=== PATIENT | female | born 1930 | race Caucasian/White ===

== ENCOUNTER 2017-04-18 14:17 | Inpatient (IN) | payer MEDICARE, BC ==
[~2017-04-18] VITALS: Ht 157.5 cm; Wt 63.0 kg
[2017-04-18 14:51] LABS: BASOPHILS 0.5 % (0-2); EOSINOPHILS 1.8 % (0-7); HEMATOCRIT 41.7 % (36.0-48.0); IMMATURE GRANULOCYTES 0.4 % (0-5); LYMPHOCYTES 10.5 % (15-50); MCHC 33.6 g/dL (31.0-37.0); MCV 92.5 fL (80.0-100.0); MEAN PLATELET VOLUME 9.2 fL (7.4-10.4); MONOCYTES 16.3 % (2-11); NEUTROPHILS 70.5 % (40-80); PLATELET COUNT 216 10x3/uL (130-400); RBC 4.51 10x6/uL (4.00-5.40); RDW 12.9 % (11.5-14.5); WBC 8.1 10x3/uL (4.8-10.8)
[2017-04-18 15:05] LABS: ALBUMIN 3.1 g/dL (3.4-5.0); ANION GAP 13.6 mmol/L (8-16); BILIRUBIN - TOTAL 0.42 mg/dL (0.2-1.3); CALCIUM 8.2 mg/dL (8.5-10.1); CARBON DIOXIDE 25.2 mmol/L (21.0-32.0); CREATININE - SERUM 1.1 mg/dL (0.6-1.3); POTASSIUM - SERUM 4.8 mmol/L (3.5-5.1); PROTEIN - SERUM 7.2 g/dL (6.4-8.2)
[2017-04-18 16:27] LABS: APPEARANCE CLEAR (CLEAR); BILIRUBIN NEGATIVE (NEGATIVE); COLOR YELLOW (YELLOW); GLUCOSE NEGATIVE (NEGATIVE); KETONE NEGATIVE (NEGATIVE); LEUKOCYTE ESTERASE 1+ (NEGATIVE); NITRITE POSITIVE (NEGATIVE); PROTEIN NEGATIVE (NEGATIVE); SPECIFIC GRAVITY 1.005 (1.005-1.020); UROBILINOGEN NORMAL (NORMAL)
[2017-04-18 16:29] LABS: BACTERIA MODERATE /hpf (NONE SEEN)
[2017-04-18 20:00] VITALS: BP 129/52
[2017-04-18 20:09] VITALS: BP 129/52; BMI 25.5
[2017-04-19] VITALS: BP 126/47
--- NOTE | 2017-04-19 02:00 | NUR ---
PT RESTING WITH EYES CLOSED AND NO VISIBLE SIGNS OF DISTRESS. BED IN LOWEST POSITION AND CALL LIGHT WITHIN REACH.
[2017-04-19 04:00] VITALS: BP 122/49
--- NOTE | 2017-04-19 05:50 | NUR ---
RESITED THE PATIENT'S IV WITH A 22G IN THE RIGHT FA ON THE FIRST ATTEMPT.
--- NOTE | 2017-04-19 07:00 | NUR ---
PT REC'D FROM [facility]. RESTING IN BED WITH DAUGHTER IN LAW AT BEDSIDE. AAOX4. NO COMPLAINTS OF PAIN. REGULAR HEART RATE AND RHYTHM. LUNG SOUNDS CLEAR AND EQUAL BILAT. TEACHER EARLY CHILDHOOD DEVELOPMENT ON. ABD ROUND, BOWEL SOUNDS ACTIVE X4 QUADS, AND NO PAIN ON PALPATION. +2 PEDAL PULSES BILAT. R FOOT DROPPED NOTED. PT STATES, "I'VE HAD THAT EVER SINCE I HAD MY STROKE." PIV TO R AC FREE OF REDNESS AND SWELLING. BED LOW, CALL LIGHT IN REACH, DENIES NEEDS. CPOC.
[2017-04-19 07:55] LABS: BASOPHILS 0.6 % (0-2); EOSINOPHILS 2.4 % (0-7); HEMATOCRIT 41.9 % (36.0-48.0); HEMOGLOBIN 14.1 g/dL (12-16); IMMATURE GRANULOCYTES 0.4 % (0-5); LYMPHOCYTES 17.8 % (15-50); MCH 31.1 pg (26.0-34.0); MCHC 33.7 g/dL (31.0-37.0); MCV 92.3 fL (80.0-100.0); MEAN PLATELET VOLUME 9.1 fL (7.4-10.4); MONOCYTES 14.2 % (2-11); NEUTROPHILS 64.6 % (40-80); PLATELET COUNT 199 10x3/uL (130-400); RBC 4.54 10x6/uL (4.00-5.40); RDW 12.9 % (11.5-14.5); WBC 6.7 10x3/uL (4.8-10.8)
[2017-04-19 08:22] LABS: ANION GAP 10.2 mmol/L (8-16); BILIRUBIN - TOTAL 0.42 mg/dL (0.2-1.3); CALCIUM 8.4 mg/dL (8.5-10.1); CARBON DIOXIDE 27.6 mmol/L (21.0-32.0); CREATININE - SERUM 0.9 mg/dL (0.6-1.3); POTASSIUM - SERUM 4.8 mmol/L (3.5-5.1); PROTEIN - SERUM 7.1 g/dL (6.4-8.2)
[2017-04-19 08:26] VITALS: BP 114/53
[2017-04-19] MEDS ORDERED: BACTRIM 400-801 TAB PO (09:02)
[2017-04-19] MEDS ORDERED: NORVASC10 MG PO (09:03)
[2017-04-19] MEDS ORDERED: BAYER CHEWABLE81 MG PO (09:05)
[2017-04-19] MEDS ORDERED: CETIRIZINE HCL5 M1 PO (09:05)
[2017-04-19] MEDS ORDERED: CELEXA20 MG PO (09:06)
[2017-04-19] MEDS ORDERED: COZAAR50 MG PO (09:06)
[2017-04-19] MEDS ORDERED: FUROSEMIDE20 MG PO (09:06)
[2017-04-19] MEDS ORDERED: TOPROL XL50 MG PO (09:07)
[2017-04-19] MEDS ORDERED: OMEPRAZOLE40 MG PO (09:07)
[2017-04-19] MEDS ORDERED: K-TAB10 MEQ PO (09:07)
[2017-04-19] MEDS ORDERED: VESICARE10 MG PO (09:08)
[2017-04-19] MEDS ORDERED: TESSALON PERLE100 MG PO ×2 (09:08)
[2017-04-19] MEDS ORDERED: MUCINEX600 MG PO (09:09)
--- NOTE | 2017-04-19 09:57 | NUR ---
* Is the patient Alert and Oriented? Yes 0 * How many steps to enter\exit or inside your home? 0 0 * PCP Hitesh 0 * Pharmacy [facility] 0 * Preadmission Environment Assisted Living 0 * Facility Name [facility] 0 * ADLs Partial Dependent 0 * Partial ADLs (Assistance needed) Ambulation 0 * Other Equipment TRANSPORT CHAIR 0 * List name and contact numbers for known caregivers / representatives who currently or will assist patient after discharge: HANY & NAYELY (SON &DAUGHTER IN LAW) [phone] * Community resources currently utilized [facility]isted [facility] 0 * Please name any agencies selected above. [facility]- 1 TIME A WEEK FOR PT 0 * Additional services required to return to the preadmission environment? Yes 0 * Can the patient safely return to the preadmission environment? Yes 0 * Has this patient been hospitalized within the prior 30 days at any hospital? No 0 Grand Total: 0 Patient Name: BUBBA TOBAR Admission Status: ER Accout number: [id number] Admission Date: 04-18-2017 : 1928 Admission Diagnosis: Attending: JA Current LOS: 1 Anticipated DC Date: Planned Disposition: Assisted Living Primary Insurance: MEDICARE A & B Discharge Planning Comments: CM met with patient and daughter in law (Nayely) to assess discharge planning needs. Patient currently lives in [facility] with Assisted living since 2005. Her plan is to return there. Nayely stated that [facility] comes one time a week and walks her down the [place]. Patient has a walker and a transport chair. CM will continue to follow and assist with discharge planning needs. PCP:Hitesh Pineda Hany (son) [phone] Nayely (daughter in law) [phone] Supervisor Mending: Patrica Gallardo
--- NOTE | 2017-04-19 11:15 | NUR ---
PT SITTING UP IN BED WITH VISITORS AT BEDSIDE. NO VISABLE SIGNS OF PAIN OR DISCOMFORT AT THIS TIME. BED IN LOW POSITION AND CALL LIGHT WITHIN REACH. WILL CONTINUE TO MONITOR.
--- NOTE | 2017-04-19 11:23 | NUR ---
MORNING MEDS PASSED AT THIS TIME. TOLERATED WELL. FRESH WATER PROVIDED. BED LOW, CALL LIGHT IN REACH, DENIES NEEDS. CPOC.
--- NOTE | 2017-04-19 12:45 | NUR ---
SITTING UP IN BED EATING LUNCH. PT STATES SHE WALKED WITH PHYSICAL THERAPY. BED LOW, CALL LIGHT IN REACH, DENIES NEEDS. CPOC.
[2017-04-19 12:57] VITALS: BP 103/45
[2017-04-19 13:17] VITALS: Ht 157.5 cm; Wt 63.0 kg
[2017-04-19 16:11] VITALS: BP 112/48
[2017-04-19 20:00] VITALS: BP 119/49
--- NOTE | 2017-04-19 23:49 | NUR ---
PT ALERT & ORIENTED. LYING IN BED WATCHING TV. ASSESSMENT COMPLETE PER FLOW-SHEET. GAVE SHERBET FOR SNACK. NO OTHER NEEDS. WILL REASSESS AND CONTINUE TO MONITOR.
[2017-04-20] VITALS: BP 105/40
[2017-04-20 04:00] VITALS: BP 117/51
[2017-04-20 05:17] LABS: BASOPHILS 0.4 % (0-2); EOSINOPHILS 4.3 % (0-7); HEMATOCRIT 43.1 % (36.0-48.0); HEMOGLOBIN 14.3 g/dL (12-16); IMMATURE GRANULOCYTES 0.1 % (0-5); LYMPHOCYTES 20.7 % (15-50); MCH 30.6 pg (26.0-34.0); MCHC 33.2 g/dL (31.0-37.0); MCV 92.1 fL (80.0-100.0); MEAN PLATELET VOLUME 9.3 fL (7.4-10.4); MONOCYTES 18.2 % (2-11); NEUTROPHILS 56.3 % (40-80); PLATELET COUNT 217 10x3/uL (130-400); RBC 4.68 10x6/uL (4.00-5.40); RDW 12.7 % (11.5-14.5)
[2017-04-20 05:32] LABS: ANION GAP 10.9 mmol/L (8-16); CALCIUM 8.1 mg/dL (8.5-10.1); CARBON DIOXIDE 27.1 mmol/L (21.0-32.0); CREATININE - SERUM 0.8 mg/dL (0.6-1.3)
--- NOTE | 2017-04-20 07:00 | NUR ---
PT AWAKE AND ALERT. RESTING ON HER BACK. ON ROOM AIR. R-AC SALINE LOCK. BRUISE NOTED ON LEFT FOREARM AND RIGHT FOREARM. ON TELEMETRY SYNUS RHYTHM 78BTS/MIN. S1S2 NOTED. LUNG SOUNDS CLEAR. BS ACTIVE X 4 QUADRANTS. SKIN WARM AND DRY. NO PAIN AT THIS TIME. NO OTHER SKIN ISSUES NOTED. BED LOW POSITION, CALL LIGHT IN REACH. WILL CONTINUE TO MONITOR.
[2017-04-20 08:54] VITALS: BP 131/58
--- NOTE | 2017-04-20 09:55 | NUR ---
PT RESTING QUIETLY. AM MEDS GIVEN WITH NO COMPLICATIONS. ICE WATER PROVIDED. TURNED TO LEFT SIDE. BED LOW. CALL LIGHT IN REACH.
--- NOTE | 2017-04-20 12:00 | NUR ---
NUTRITION MONITORING & EVAL CHART REVIEWED. ADDED ENSURE TO AHA DIET BUT INTAKE REMAINS POOR. WILL CONTINUE TO PROVIDE DIET, ENCOURAGE INTAKE. RD FOLLOWING
[2017-04-20 13:03] VITALS: BP 103/46
--- NOTE | 2017-04-20 13:42 | NUR ---
AMBULATING WITH PHYSICAL THERAPY.
--- NOTE | 2017-04-20 15:34 | NUR ---
PT SOUND ASLEEP. SCD'S CONNECTED. RESTING ON HER BACK AT THIS TIME. NO OTHER NEEDS WILL CONTINUE TO MONITOR.
--- NOTE | 2017-04-20 16:49 | NUR ---
PT HAD BM AND URINE INCONTINENT EPISODE. PERICARE PROVIDED. CLEAN PAD, GOWN, TOP SHEET AND BLANKET PROVIDED. REPOSITIONED IN BED ONTO RIGHT SIDE. WILL CONTINUE TO MONITOR.
[2017-04-20 20:00] VITALS: BP 106/54
--- NOTE | 2017-04-20 22:52 | NUR ---
REC'D LYING IN BED. ALERT AND ORIENTED X4. DENIED PAIN AT THIS TIME. DENIED FURTHER NEEDS AT THIS TIME. WILL ADMIN PM/AM MEDS PRESCRIBED. INSTRUCTED TO CALL IF NEEDED ANYTHING. VERBALIZED UNDERSTANDING. BED LOW, LOCKED, CALL LIGHT IN REACH. WILL CONT TO MONITOR.
[2017-04-21] VITALS: BP 114/50
--- NOTE | 2017-04-21 02:12 | NUR ---
PATIENT IS RESTING QUIETLY WITH EYES CLOSED. NO SIGNS OF DISTRESS NOTED. BED IN LOWEST POSITION, CALL LIGHT IN REACH. BED RAILS UP X'S 2.
[2017-04-21 04:00] VITALS: BP 115/53
--- NOTE | 2017-04-21 07:30 | NUR ---
PATIENT IS RESTING QUIETLY IN HER BED WITH EYES CLOSED. RESPIRATIONS ARE EVEN AND UNLABORED. CALL LIGHT IN PATIENT'S REACH. BED ALARM IN PLACE. WILL MONITOR PATIENT.
[2017-04-21 08:34] VITALS: BP 114/52
--- NOTE | 2017-04-21 12:45 | NUR ---
PATIENT SITTING UP IN A CHAIR. PATIENT'S BLOOD PRESSURE IS 88/41. DR. DHILLON COIN PURSE FRAMER AND DR. DHILLON NOTIFIED OF PATIENT'S LOW BLOOD PRESSURE. NEW ORDERS RECEIVED TO HOLD ALL BLOOD PRESSURE MEDICATIONS AND GIVE PATIENT A 500 ML NORMAL SALINE BOLUS.
[2017-04-21 13:03] VITALS: BP 82/41
[2017-04-21 16:31] VITALS: BP 103/43
--- NOTE | 2017-04-21 17:30 | NUR ---
PATIENT SITTING UP IN HER BED AND EATING DINNER. PATIENT'S SON AT THE BEDSIDE. PATIENT DENIES ANY NEEDS AT PRESENT TIME. CALL LIGHT IN PATIENT'S REACH. WILL MONITOR.
[2017-04-21 20:00] VITALS: BP 107/43
--- NOTE | 2017-04-22 00:17 | NUR ---
REC'D. AT [facility]. OF SHIFT IN BED SUPINE POSITION EYES CLOSED RESP. DEEP AND EVEN.WILL CONTINUE TO MONITOR FOR ANY CHGES. AND FOLLOW CURRENT PLAN OF CARE. BED ARMED
--- NOTE | 2017-04-22 03:55 | NUR ---
PT. BECAME COMBATIVE WHEN CRUDE OIL DRIVER ATTEMPTING TO TAKE VITAL SIGNS
--- NOTE | 2017-04-22 07:39 | NUR ---
PATIENT SITTING UP IN HER BED. SCHEDULED MORNING MEDICATIONS GIVEN TO PATIENT IN APPLESAUCE. PATIENT TOLERATED WELL. PATIENT DENIES ANY NEEDS AT PRESENT TIME. CALL LIGHT IN PATIENT'S REACH. WILL MONITOR PATIENT.
[2017-04-22 08:32] VITALS: BP 120/51
[2017-04-22 11:56] VITALS: BP 106/47
[2017-04-22 16:42] VITALS: BP 116/47
[2017-04-22 19:00] VITALS: BP 108/94
--- NOTE | 2017-04-22 19:15 | NUR ---
RECIEVED SHIFT REPORT. PT IS LYING IN BED. ALERT AND ORIENTED AND ABLE TO VERBALIZE NEEDS. IV IS PATENT AND FLUIDS ARE RUNNING PER ORDER. SCD'S ON. PT DENIES ANY PAIN AT THIS TIME. NO NEEDS ARE VERBALIZED AT THIS TIME. WILL CONTINUE TO MONITOR. SIDE RAILS ARE UP X 2. BED IS IN LOWEST POSITION. CALL LIGHT IS WITHIN REACH.
--- NOTE | 2017-04-22 21:28 | NUR ---
SHIFT ASSESSMENT COMPLETED. FLUIDS HUNG PER NOV. PT CLEANED UP FROM INCONTINENT EPISODE. NO NEEDS ARE VOICED. WILL MONITOR. SIDE RAILS X 2. BED LOW. CALL LIGHT IN REACH.
[2017-04-23] VITALS: BP 133/62
[2017-04-23 04:00] VITALS: BP 140/66
--- NOTE | 2017-04-23 07:00 | NUR ---
PT REC'D FROM [place]. RESTING IN BED WITH BREAKFAST TRAY AT BEDSIDE. AAOX4. NO COMPLAINTS OF PAIN. REGULAR HEART RATE AND RHYTHM. LUNG SOUNDS CLEAR AND EQUAL BILAT. BOWEL SOUNDS ACTIVE X4 QUADS. NO COMPLIANTS OF PAIN ON PALPATION. SCD'S ON. +2 PEDAL PULSES BILAT. SKIN TO BLE CDI. MEAL SET UP PROVIDED. PIV TO R FA FREE OF REDNESS AND SWELLING. BED LOW, CALL LIGHT IN REACH, DENEIS NEEDS. CPOC.
[2017-04-23 08:38] VITALS: BP 129/56
--- NOTE | 2017-04-23 08:45 | NUR ---
MORNING MEDS PASSED AT THIS TIME. TOLERATED WELL BY MIXING WITH APPLESAUCE. BED LOW, CALL LIGHT IN REACH, DENIES NEEDS. CPOC.
--- NOTE | 2017-04-23 09:22 | NUR ---
CM spoke with patient and daughter in law about patients rehab options. She would like to go to our Rehab then go back to [facility]. Rehab consult entered and I spoke with Chiquita. CM will continue to follow and assist as needed.
--- NOTE | 2017-04-23 10:55 | NUR ---
PATIENT IN LOW [place] POSITION RESTING WITH EYES CLOSED. RESPIRATIONS EVEN AND UNLABORED. SIDE RAILS UP X2. BED IN LOW POSITION. CALL LIGHT IN REACH. FAMILY PRESENT.
--- NOTE | 2017-04-23 11:26 | NUR ---
REHAB PRESCREENING Rehab referral received and chart reviewed. Ms. Lozada is a good candidate for acute inpatient rehab. We will begin her paper screen and submit for approvals. Once approved she will be ready for admission to rehab when her physician feels she is appropriate for discharge. Thank you for this referral! Naila Saldana PAPER [place] MACHINE OPERATOR Rehab Manager Sales Training
--- NOTE | 2017-04-23 11:35 | NUR ---
PT UP AMBULATING IN HALLS WITH PHYSICAL THERAPY.
[2017-04-23] MEDS ORDERED: NORVASC5 MG PO (12:49)
[2017-04-23] MEDS ORDERED: TOPROL XL50 MG PO (12:49)
[2017-04-23] MEDS ORDERED: COZAAR25 MG PO (12:49)
--- NOTE | 2017-04-23 12:51 | HP ---
PATIENT: BUBBA TOBAR MEDICAL RECORD: [id number] ACCOUNT: [id number] LOCATION:D.[id number] : [birth year] ADMISSION DATE: 04/18/17 HISTORY AND PHYSICAL EXAMINATION DATE OF ADMISSION: 04/18/2017 CHIEF COMPLAINT: Generalized weakness. HISTORY OF PRESENT ILLNESS: This 86-year-old white female, who is a resident of [facility]. 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 She has hypertension and depression. She was brought in for generalized weakness over the last 2 weeks. Denies chest pain or shortness of breath. No nausea or vomiting. She is now requiring maximal assist to nursing care at [facility] with just simple activities of daily living including bathing, grooming et cetera. She has been getting physical therapy a couple of times a week to a local home health and she is just seemingly getting worse. In the ER, her sodium was little low at 130. Urinalysis showed positive nitrite, leukocyte esterase and moderate bacteria. She is admitted. PAST MEDICAL AND SURGICAL HISTORY: Arthritis, hypertension, reflux, overactive bladder allergies, stroke with residual right foot drop. PAST SURGICAL HISTORY: None. ALLERGIES: PENICILLIN, IODINE, CODEINE AND DEMEROL. SOCIAL HISTORY: She is , lives at [facility], retired. FAMILY HISTORY: Noncontributory. REVIEW OF SYSTEMS: GENERAL: No major weight changes. HEENT: No particular sinus or allergy problems. RESPIRATORY: No breathing problems. No history of COPD or asthma. CARDIAC: She has high blood pressure, but no known coronary artery disease. GASTROINTESTINAL: Has some reflux at times, but otherwise unremarkable. GENITOURINARY: Occasional urinary tract infection. She does have overactive bladder. MUSCULOSKELETAL: She has arthritic aches and pains. NEUROLOGIC: She has had a stroke with residual right leg weakness and foot drop. PSYCHIATRIC: She is having depression. PHYSICAL EXAMINATION: VITAL SIGNS: Today, temperature 98.2, pulse 78, respirations 20, blood pressure 129/52, and O2 sat 95%. She is awake and alert. She just not feel well. She cannot really put her finger on it. SKIN: Without rash. HEENT: Grossly within normal limits. NECK: Supple. HEART: Regular rate and rhythm without murmur. LUNGS: Clear. ABDOMEN: Soft, flat, nontender. EXTREMITIES: No edema. She wears an AFO in her right lower leg for foot drop. HISTORY AND PHYSICAL [id number] BUBBA TOBAR LABORATORY DATA: CBC is normal. Basic metabolic panel was okay except sodium 130. Liver functions are normal. Urinalysis shows yellow clear urine with positive nitrite, 1+ leukocyte esterase, 5-10 white blood cells, and moderate bacteria. Urine culture is pending. Chest x-ray shows mild bibasilar atelectasis. ASSESSMENT: 1. Weakness 2. Urinary tract infection. 3. Hyponatremia. PLAN: Started Rocephin in the ER. Urine culture. Get physical therapy to mobilize. Other tests and procedures as warranted. TRANSINT:[id number] Voice Confirmation ID: [id number] DOCUMENT ID: [id number] GABRIELLA ALLISON MD at 1251 CC: [id number] DICTATION DATE: 04/19/17 1030 GLUER AND SLICER HAND: 04/19/17 1245 ADM IN [place] [id number] [place] [address]
[2017-04-23 13:30] VITALS: BP 98/69
--- NOTE | 2017-04-23 15:03 | NUR ---
PT SITTING UP IN BED WITH EYES CLOSED. RESP EVEN AND UNLABORED. NO SIGNS OF DISTRESS. BED LOW, CALL LIGHT IN REACH, DENIES NEEDS. CPOC.
--- NOTE | 2017-04-23 16:21 | NUR ---
PATIENT DISCHARGING TO INPATIENT REHAB. DAUGHTER AT BEDSIDE. IMM SERVED
== END 2017-04-23 20:11 | DRG 690 ==
LOC: D.ER 14:17 → D.MS 18:23
PROVIDERS: Emergency Medicine; ADMIT Family Medicine
DX: N39.0 Urinary tract infection, site not specified (principal); E87.1 Hypo-osmolality and hyponatremia; I10 Essential (primary) hypertension; R53.1 Weakness; I69.30 Unspecified sequelae of cerebral infarction; M21.379 Foot drop, unspecified foot; K21.9 Gastro-esophageal reflux disease without esophagitis

== ENCOUNTER 2017-04-23 20:23 | Inpatient (IN) | payer MEDICARE, BC ==
[~2017-04-23] VITALS: Ht 157.5 cm; Wt 63.0 kg
[~2017-04-23 20:23] MED LIST: BACTRIM 400-801 TAB PO; BAYER CHEWABLE81 MG PO; CELEXA20 MG PO; CETIRIZINE HCL5 M1 PO; COZAAR25 MG PO; COZAAR50 MG PO; FUROSEMIDE20 MG PO; K-TAB10 MEQ PO; MUCINEX600 MG PO; NORVASC10 MG PO; NORVASC5 MG PO; OMEPRAZOLE40 MG PO; TESSALON PERLE100 MG PO; TOPROL XL50 MG PO; VESICARE10 MG PO
[2017-04-23 21:04] VITALS: BP 131/56; BMI 25.5
[2017-04-24 06:07] LABS: BASOPHILS 0.6 % (0-2); EOSINOPHILS 3.6 % (0-7); HEMATOCRIT 39.8 % (36.0-48.0); HEMOGLOBIN 13.5 g/dL (12-16); IMMATURE GRANULOCYTES 0.5 % (0-5); LYMPHOCYTES 37.6 % (15-50); MCH 31.1 pg (26.0-34.0); MCHC 33.9 g/dL (31.0-37.0); MCV 91.7 fL (80.0-100.0); MEAN PLATELET VOLUME 9.1 fL (7.4-10.4); MONOCYTES 10.2 % (2-11); NEUTROPHILS 47.5 % (40-80); RBC 4.34 10x6/uL (4.00-5.40); RDW 12.6 % (11.5-14.5); WBC 6.6 10x3/uL (4.8-10.8)
[2017-04-24 06:12] LABS: PLATELET COUNT 276 10x3/uL (130-400)
[2017-04-24 06:32] LABS: CALC OSMOLALITY 272 mosm/kg (275-300); CALCIUM 8.7 mg/dL (8.5-10.1); CARBON DIOXIDE 28.2 mmol/L (21.0-32.0); CHLORIDE - SERUM 103 mmol/L (98-107); CREATININE - SERUM 0.7 mg/dL (0.6-1.3); GLUCOSE 101 mg/dL (74-106); POTASSIUM - SERUM 3.6 mmol/L (3.5-5.1); SODIUM 137 mmol/L (136-145); UREA NITROGEN 10 mg/dL (7-18); eGFR NON AFRICAN AMERICAN 83 mL/min (90-120)
[2017-04-24 10:18] VITALS: Ht 157.5 cm; Wt 63.0 kg
--- NOTE | 2017-04-24 17:16 | NUR ---
PATIENT ADMITED TO REHAB FROM ACUTE FLOOR. SHE RESIDES AT [facility]. DR. ALLISON IS HER PCP [facility] SHE USES [facility] AT HOME FOR HOME HEALTH. WILL CONTINUE TO FOLLOW WITH PATIENT
[2017-04-24 18:20] VITALS: BP 138/46
--- NOTE | 2017-04-24 19:10 | NUR ---
RECIEVED UP IN W/C. PLEASANT AND COOPERATIVE. DENIES ANY PAIN. CALL LIGHT IN REACH.
--- NOTE | 2017-04-24 22:47 | NUR ---
RESTING IN BED WITH EYES CLOSED.CHECKED AND CHANGED. INCONTINENT OF URINE. ABLE TO ASSIST WITH TURNING AND REPOSITIONING. CALL LIGHT AND OVERBED TABLE IN REACH.
[2017-04-25 00:15] VITALS: BP 120/55
--- NOTE | 2017-04-25 00:42 | NUR ---
RESTING IN BED WITH EYES CLOSED. NO S/S OF DISTRESS OBSERVED. LAYING IN BED ON RIGHT SIDE. BED IN LOW POSITION. ALARM IN PLACE AND FUNCTIONAL. CALL LIGHT AND OVERBED TABLE IN REACH.
--- NOTE | 2017-04-25 02:21 | NUR ---
RESTING IN BED WITH EYES CLOSED. NO S/S OF DISTRESS OBSERVED. INCONTINENT OF BLADDER. PERICARE PROVIDED. CALL LIGHT AND OVERBED TABLE IN REACH.
--- NOTE | 2017-04-25 04:10 | NUR ---
RESTING IN BED WITH EYES CLOSED. NO S/S OF DISTRESS OBSERVED. CALL LIGHT IN REACH.
--- NOTE | 2017-04-25 08:00 | NUR ---
SITTING UP IN BED.BREAKFAST TRAY GIVEN.CL IN REACH.
[2017-04-25 08:01] VITALS: BP 124/53
[2017-04-25 20:00] VITALS: BP 112/53
--- NOTE | 2017-04-25 21:05 | NUR ---
ASSUMED CARE AND REPORT FROM SUSIE ANTHONY LPN
--- NOTE | 2017-04-25 21:45 | NUR ---
PT AWAKE, WATCHING TV, INFORMED PT THAT I WILL BE BACK SHORTLY TO DO ASSESSMENT AND ADM MEDS, PT VERBALIZES UNDERSTANDING, DENIES NEEDS AT THIS TIME, BED IN LOW POSITION, SIDE RAILS X 2, CALL LIGHT IN REACH
--- NOTE | 2017-04-25 22:21 | NUR ---
ASSESSMENT PER FLOW SHEET, PT AND BED NOTED TO BE COMPLETELY WET, PT CLEANED UP WITH WET WARM WIPES, COMPLETE BEDDING CHANGED, CLEAN BRIEFS AND SCRUB SHIRT PLACED ON PT, PT REPOSITIONED IN BED PER THIS RN AND JANNETH ARIZMENDI LPN, ADM 2100 MEDS PER MD ORDERS, SEE EMAR, WITH FRESH H20, PT DENIES PAIN, BED IN LOW POSITION, SIDE RAILS X 2, CALL LIGHT IN REACH
--- NOTE | 2017-04-25 23:25 | NUR ---
PT RESTING WITH EYES CLOSED, RESP QUIET, NO DISTRESS NOTED, LEFT UNDISTURBED AT THIS TIME
--- NOTE | 2017-04-26 01:30 | NUR ---
PT RESTING WITH EYES CLOSED, RESP QUIET, NO DISTRESS NOTED, LEFT UNDISTURBED AT THIS TIME, BED IN LOW POSITION, SIDE RAILS X 2, CALL LIGHT IN REACH
--- NOTE | 2017-04-26 05:27 | NUR ---
PT RESTING WITH EYES CLOSED, AROUSES TO SOFT VERBAL STIMULATION, ADM 0600 MED PER MD ORDERS, SEE EMAR, PT CLEANED UP WITH WET WARM WIPES, PINK PAD, BLUE CHUX AND BRIEF CHANGED, PT DENIES NEEDS OR PAIN AT THIS TIME, BED IN LOW POSITION, SIDE RAILS X 2, CALL LIGHT IN REACH
--- NOTE | 2017-04-26 06:44 | NUR ---
SHIFT REPORT TO DAY SHIFT
--- NOTE | 2017-04-26 08:00 | NUR ---
SHIFT ASSMT COMPLETED.
[2017-04-26 08:31] VITALS: BP 121/55
--- NOTE | 2017-04-26 12:00 | NUR ---
EATING LUNCH.DENIES NEEDS.
--- NOTE | 2017-04-26 19:14 | NUR ---
PT. IN BED WITH HOB UP FOR COMFORT WATCHING TV. NO VOICED NEEDS AT THIS TIME AND HER CALL LIGHT IS WITHIN REACH.
--- NOTE | 2017-04-26 19:45 | NUR ---
PT IN BED WITH HOB UP FOR COMFORT. WATCHING TV. ALERT & ORIENTED. TELEMETRY. NO O2. NO IV. INCONTINENT. BED IN LOWEST POSITION AND CALL LIGHT WITHIN REACH.
[2017-04-26 21:10] VITALS: BP 109/48
--- NOTE | 2017-04-26 23:45 | NUR ---
PT IN BED WITH HOB UP FOR COMFORT. EYES CLOSED. CHEST RISING AND FALLING. BED IN LOWEST POSITION AND CALL LIGHT WITHIN REACH.
--- NOTE | 2017-04-27 03:34 | NUR ---
PT LYING IN BED. EYES CLOSED. RESP. EVEN. BED IN LOWEST POSITION AND CALL LIGHT WITHIN REACH.
[2017-04-27 05:39] LABS: BASOPHILS 0.8 % (0-2); EOSINOPHILS 2.7 % (0-7); HEMATOCRIT 39.7 % (36.0-48.0); HEMOGLOBIN 13.3 g/dL (12-16); IMMATURE GRANULOCYTES 0.5 % (0-5); LYMPHOCYTES 33.9 % (15-50); MCH 30.9 pg (26.0-34.0); MCHC 33.5 g/dL (31.0-37.0); MCV 92.3 fL (80.0-100.0); MEAN PLATELET VOLUME 9.2 fL (7.4-10.4); MONOCYTES 14.4 % (2-11); NEUTROPHILS 47.7 % (40-80); PLATELET COUNT 290 10x3/uL (130-400); RDW 12.5 % (11.5-14.5); WBC 7.4 10x3/uL (4.8-10.8)
[2017-04-27 05:49] LABS: CALC OSMOLALITY 274 mosm/kg (275-300); CALCIUM 8.2 mg/dL (8.5-10.1); CARBON DIOXIDE 30.5 mmol/L (21.0-32.0); CHLORIDE - SERUM 102 mmol/L (98-107); CREATININE - SERUM 0.7 mg/dL (0.6-1.3); GLUCOSE 97 mg/dL (74-106); POTASSIUM - SERUM 3.8 mmol/L (3.5-5.1); SODIUM 136 mmol/L (136-145); UREA NITROGEN 20 mg/dL (7-18); eGFR NON AFRICAN AMERICAN 83 mL/min (90-120)
[2017-04-27 08:00] VITALS: BP 121/53
--- NOTE | 2017-04-27 08:00 | NUR ---
POS UP IN BED;DISPOSABLE BRIEF DRY.BREAKFAST GIVEN.CL IN REACH.
--- NOTE | 2017-04-27 12:00 | NUR ---
EATING LUNCH.CL IN REACH.
--- NOTE | 2017-04-27 16:00 | NUR ---
SON VISITING.CL IN REACH.
--- NOTE | 2017-04-27 19:12 | NUR ---
UP IN BED WITH EYES OPEN AND TV ON. HOB ELEVATED. DENIES ANY PAIN AT THIS TIME.
--- NOTE | 2017-04-27 20:13 | NUR ---
RESTING IN BED WITH EYES CLOSED. NO S/S OF DISTRESS OBSERVED. INCONTINENT OF BLADDER. CHECKED AND CHANGED. PERICARE GIVEN AND CHANGED INTO A GOWN. CALL LIGHT AND OVERBED TABLE IN REACH.
--- NOTE | 2017-04-28 00:43 | NUR ---
RESTING IN BED WITH EYES CLOSED. NO S/S OF DISTRESS OBSERVED. CLEAN AND DRY AT THIS TIME.
[2017-04-28 02:24] VITALS: BP 105/48
--- NOTE | 2017-04-28 02:54 | NUR ---
CONTINUES TO BE INCONTINENT OF YRINE. CHECKED AND CHANGED WITH ALBA CARE PROVIDED. CALL LIGHT IN REACH.
--- NOTE | 2017-04-28 06:28 | NUR ---
RESTING IN BED WITH EYES CLOSED. CHECKED AND CHANGED. PERICARE PROVIDED. TAKES MEDICATION WHOLE WITH OUT DIFFICULTY.
[2017-04-28 15:24] VITALS: BP 111/46
--- NOTE | 2017-04-28 17:37 | NUR ---
SITTING UP IN BED EATING SUPPER. GOT VERY AGITATED WHEN NURSE WAS CHANGING INCONT BRIEF. SHE BECAME OBSTINATE WITH NURSE, REFUSED TO TRY TO SCOOT UP IN BED, REFUSED TO PLACE HER OWN PILLOW BEHIND HER OWN HEAD, REFUSED TO ROLL WHEN ASKED.
--- NOTE | 2017-04-28 19:09 | NUR ---
UP IN BED WITH HOB ELEVATED AND TV ON. PLEASANT AND SMILING. DENIES ANY PAIN AT THIS TIME. CALL LIGHT AND OVERBED TABLE IN REACH.
[2017-04-28 19:42] VITALS: BP 108/52
--- NOTE | 2017-04-28 21:10 | NUR ---
LAYING IN BED WITH EYES OPEN AND TV ON . NO S/S OF DISTRESS OBSERVED. CHECKED AND CHANGED. INCONTINENT OF URINE. CHANGED INTO A GOWN. TURNED AND ENCOURAGED TO REPOSITION. STATES " I'M WATCHING TV RIGHT NOW". CALL LIGHT AND OVERBED TABLE IN REACH.
--- NOTE | 2017-04-28 23:17 | NUR ---
LYING IN BE DWITH EYES OPEN AND TV ON. PLEASANT AND TALKATIVE. DENIES ANY PAIN. CALL LIGHT AND OVERBED TABLE IN REACH.
--- NOTE | 2017-04-29 01:05 | NUR ---
RESTING IN BED WITH EYES CLOSED. NO S/S OF DISTRESS OBSERVED. HOB ELEVATED. CALL LIGHT AND OVERBED TABLE IN REACH.
[2017-04-29 13:15] VITALS: BP 113/52
--- NOTE | 2017-04-29 15:47 | NUR ---
SITTING UP IN BED. REFUSED TO GET OUT OF BED TODAY TO W/C. REMAINS INCONT OF URINE. CALL LIGHT IN REACH
--- NOTE | 2017-04-29 18:01 | NUR ---
REFUSING TO EAT SUPPER TONIGHT. DID NOT EAT LUNCH, ARE FEW BITES OF LUNCH AND NOW REFUSING SUPPER. STILL REFUSING TO GET OUT OF BED. INCONT OF URINE. IS ALERT AND ORIENTED X4. FAMILY VISITING.
--- NOTE | 2017-04-29 19:29 | NUR ---
RESTING IN BED WITH EYES CLOSED. NO S/S OF DISTRESS OBSERVED. ALARM IN PLACE. CALL LIGHT AND OVERBED TABLE IN REACH.
[2017-04-29 20:39] VITALS: BP 122/54
--- NOTE | 2017-04-29 21:18 | NUR ---
RESTING IN BE DWITH EYES CLOSED. NO S/S OF DISTRESS OBSERVED. CALL LIGHT AND OVERBED TABLE IN REACH.
--- NOTE | 2017-04-30 00:06 | NUR ---
CHECKED CHANGED AND PERICARE PROVIDED. INCONTINENT OF BLADDER. REQUIRES MAXASSIST TO TRURN AND REPOSITION. PT REFUSING TO ASSIST. CALL LIGHT AND OVERBED TABLE IN REACH.
--- NOTE | 2017-04-30 06:21 | NUR ---
APPEARS AGGITATED THIS AM. REFUSING TO BE CHANGED OR DRESSED. ALSO STATED "AND I'M NOT DOING THERAPY EITHER". CHARGE NURSE NOTIFIED AND SPOKE WITH PT.. PT FINALLY AGREED TO BE CHANGED AND DRESSED. ALSO, AGREED TO THERAPY.
--- NOTE | 2017-04-30 08:19 | NUR ---
REFUSED BREAKFAST THIS MORNING.
[2017-04-30 09:57] VITALS: BP 120/60
--- NOTE | 2017-04-30 16:29 | NUR ---
RESTING QUIETLY IN BED. REFUSED TO BE PULLED UP IN BED. HAS BEEN MORE COOPERATIVE TODAY AND WENT TO THERAPY AND SAT ON SIDE OF BED AND ATE LUNCH.
--- NOTE | 2017-04-30 18:24 | NUR ---
SITTING UP IN BED EATING SUPPER. SON AT BEDSIDE ENCOURAGING HER TO EAT.
--- NOTE | 2017-04-30 19:30 | NUR ---
PT IS RESTING IN BED WATCHING TV. ALERT AND ORIENTED X 3. DENIES ANY PAIN OR DISCOMFORT AT THIS TIME. RIGHT FOOT BRACE IS ON AND INTACT. TELEMETRY UNIT IS ON AND INTACT. NO NEEDS VOICED. SR'S ARE UP X 2 IN BED. CALL LIGHT AND BEDSIDE TABLE ARE WITHIN EASY REACH.
[2017-04-30 19:40] VITALS: BP 132/79
--- NOTE | 2017-04-30 20:01 | NUR ---
PT. IN BED WITH HOB UP FOR COMFORT WATCHING TV. NO VOICED NEEDS AT THIS TIME AND HER CALL LIGHT IS WITHIN REACH.
--- NOTE | 2017-04-30 21:19 | NUR ---
PT IS RESTING IN BED. NO NEEDS VOICED. REQUESTED LIGHTS OUT AT THIS TIME.
--- NOTE | 2017-05-01 00:01 | NUR ---
PT IS RESTING QUIETLY IN BED WITH EYES CLOSED. RESPS ARE EVEN AND UNLABORED. NO ACUTE DISTRESS NOTED.
--- NOTE | 2017-05-01 01:44 | NUR ---
RESTING IN BED WITH EYES CLOSED.
--- NOTE | 2017-05-01 04:59 | NUR ---
RESTING IN BED WITH EYES CLOSED.
[2017-05-01 07:55] VITALS: BP 103/49
--- NOTE | 2017-05-01 08:00 | NUR ---
SHIFT ASSMT COMPLETED.DENIES NEEDS.
--- NOTE | 2017-05-01 12:00 | NUR ---
EATING LUNCH.CL IN REACH.
--- NOTE | 2017-05-01 12:00 | NUR ---
EATING LUNCH.CL IN REACH.
--- NOTE | 2017-05-01 13:15 | NUR ---
Nutrition Follow Up: Pt was in therapy at the time of RD visit. Interview deferred. Pt is eating 26% meal avg on a regular diet. She is receiving Ensure TID. +BM 04/26/17. Meds noted including Lasix. Labs reviewed. Rec continue current diet, supplement regimen. Rec consider an appetite stimulant. RD following.
--- NOTE | 2017-05-01 16:00 | NUR ---
RESTING QUIETLY.DENIES NEEDS.
[2017-05-01 19:31] VITALS: BP 102/46
--- NOTE | 2017-05-01 19:48 | NUR ---
PT. SITTING UP IN BED WITH HOB UP FOR COMFORT AND IS WATCHING TV. NO VOICED NEEDS AT THIS TIME AND HER CALL LIGHT IS WITHIN REACH.
--- NOTE | 2017-05-01 22:10 | NUR ---
PT IS RESTING QUIETLY IN BED WITH EYES CLOSED. RESPS ARE EVEN AND UNLABORED. NO ACUTE DISTRESS NOTED.
--- NOTE | 2017-05-02 00:02 | NUR ---
PT RESTING IN BED WITH EYES CLOSED. NO ACUTE DISTRESS NOTED.
--- NOTE | 2017-05-02 03:13 | NUR ---
RESTING IN BED WITH EYES CLOSED.
--- NOTE | 2017-05-02 05:50 | NUR ---
PT RESTING IN BED WITH EYES OPEN. INC. CARE GIVEN AT THIS TIME. PT ENCOURAGED TO CALL NURSE MORE OFTEN FOR ASSISTANCE WITH INCONTINENCE. SHE STATED "OH IT DOESNT MATTER." I EXPLAINED TO HER THAT IT DOES MATTER, AND WENT OVER SOME OF THE NEGATIVE OUTCOMES THAT COULD DEVELOPE, AND SHE VOICED VERBAL UNDERSTANDING, AND STATED SHE WOULD TRY TO CALL MORE OFTEN.
[2017-05-02 07:44] LABS: BASOPHILS 0.8 % (0-2); EOSINOPHILS 3.6 % (0-7); HEMATOCRIT 39.9 % (36.0-48.0); IMMATURE GRANULOCYTES 0.3 % (0-5); LYMPHOCYTES 25.4 % (15-50); MCH 30.6 pg (26.0-34.0); MCHC 32.6 g/dL (31.0-37.0); MCV 93.9 fL (80.0-100.0); MEAN PLATELET VOLUME 9.6 fL (7.4-10.4); MONOCYTES 12.1 % (2-11); NEUTROPHILS 57.8 % (40-80); PLATELET COUNT 266 10x3/uL (130-400); RBC 4.25 10x6/uL (4.00-5.40); RDW 12.8 % (11.5-14.5); WBC 7.8 10x3/uL (4.8-10.8)
[2017-05-02 07:57] LABS: ANION GAP 9.9 mmol/L (8-16); CALCIUM 8.3 mg/dL (8.5-10.1); CARBON DIOXIDE 30.2 mmol/L (21.0-32.0); CREATININE - SERUM 0.8 mg/dL (0.6-1.3); POTASSIUM - SERUM 4.1 mmol/L (3.5-5.1)
[2017-05-02 08:24] VITALS: BP 104/40
--- NOTE | 2017-05-02 14:05 | RHP ---
PATIENT: BUBBA TOBAR MEDICAL RECORD: [id number] ACCOUNT: [id number] LOCATION:[facility]1118 : [birth year] ADMISSION DATE: 04/23/17 REHABILITATION HISTORY AND PHYSICAL EXAMINATION POST ADMISSION PHYSICIAN EXAMINATION Post-admission Physical Examination and History and Physical DATE OF ADMISSION: 04/23/2017 ADMITTING DIAGNOSES: Debility secondary to urinary tract infection with Escherichia coli. HISTORY OF PRESENT ILLNESS: The patient is an 86-year-old female patient who is admitted to inpatient rehab secondary debility caused by UTI. She apparently is a resident of [facility] she was admitted to the acute hospitalist with progressive weakness and worsen over the previous 2 weeks and was found to have UTI. Urinalysis shows positive nitrite, leukocyte esterase and moderate bacteria. 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 She now requiring maximal assist to nursing care at [facility] and just simple activities of daily living including bathing, grooming and anything in that origin. She has been getting physical therapy a couple of weeks from a local home health and she just seemingly getting worse. In the ER, sodium was 130. She was started on IV Rocephin. Urine cultures grew out E. coli. Blood pressure medicines were adjusted because her BP was low. She lives in her own apartment at [facility] assisted living with moderately independent with her ADLs moderately independent with mobility. She is currently max assist for ADLs and moderate to max assist for mobility. Her plan is to return back home to her apartment, get back to her prior level of functioning or better and the only way we see this can happen is for her to participate here in the inpatient rehab. COMORBIDITIES: Include hypertension, acute weakness, UTI, hyponatremia, self-care deficits, hypotension, debility, right foot drop, urinary incontinence and history of arthritis. PAST MEDICAL HISTORY: Significant for arthritis, hypertension, reflux, overactive bladder, stroke with residual right foot drop, depression. PAST SURGICAL HISTORY: None. ALLERGIES: PENICILLIN, IODINE, CODEINE AND DEMEROL. CURRENT MEDICATIONS: Include VESIcare 10 mg daily, potassium 10 mEq daily, Protonix 40 mg daily, metoprolol 50 mg daily, losartan 25 mg daily, furosemide 20 mg daily, Celexa 20 mg daily, Ellie 60 mg daily, aspirin chewable 81 mg daily, amlodipine 5 mg daily, Mucinex 600 q.4 hours p.r.n., Tessalon Perles 100 mg t.i.d. p.r.n. cough. HABITS: No alcohol or tobacco use. FAMILY HISTORY: Noncontributory. SOCIAL HISTORY: The patient once again wants to return back to [facility] at her prior level of functioning. HISTORY AND PHYSICAL [id number] BUBBA TOBAR REVIEW OF SYSTEMS: GENERAL: Does complain of weakness and fatigue. HEENT: Denies cold, cough, or congestion. CARDIOVASCULAR: Denies chest pain. No shortness of breath. PHYSICAL EXAMINATION: VITAL SIGNS: Stable, afebrile. GENERAL: An elderly female, in no acute distress, alert upon exam. HEENT: Normocephalic and atraumatic. Mucosa moist. NECK: Supple. No lymphadenopathy. LUNGS: Clear at this time. HEART: Has a regular rate and rhythm. ABDOMEN: Benign. EXTREMITIES: No clubbing, cyanosis or edema. NEUROLOGIC: Slow to mentate, but intact. LABORATORY DATA: Her white count 6.6, H&H 13 and 39, and platelet count is 276. Her sodium is 137, potassium 3.6, BUN and creatinine of 10 and 0.7, and blood sugar is noted to be 101. ASSESSMENT: This is an 86-year-old female patient admitted to rehab with a working diagnosis of debility secondary to urinary tract infection caused by Escherichia coli. The patient has potential to make improvement. We instituted the following multidisciplinary therapies including to, but not limited to physical, occupational, respiratory, speech, nutritional services, prosthetics and orthotics. Given her complex condition and risk for more complications, rehabilitation services cannot be provided at a low level of care such as a fci facility. PLAN: 1. Admit to [facility] rehab for intensive inpatient therapy to include the following disciplines: A. Physical therapy to improve gait, all transfer skills and bed mobility to a modified independent level. B. Occupational therapy to improve activities of daily living to a modified independent level. C. Case management to assist with discharge planning and placement options. D. Nutrition to assist with nutritional needs. E. Rehabilitation nursing to assist in monitoring the patient underlying medical conditions and to assist with any type of bowel or bladder management. 2. The patient's current medications and medical care will be continued. 3. The patient will be placed on standard fall precautions. 4. The patient's estimated length of stay is approximately 7-10 days. 5. Discuss this patient during care team staff meeting on Sunday of this week. TRANSINT:[id number] Voice Confirmation ID: [id number] DOCUMENT ID: [id number] ANN-MARIE notes whether there has been none or any medical/functional change since admission: - HISTORY AND PHYSICAL [id number] BUBBA TOBAR attests patient continues to be appropriate for IRF: - SLIME GONZALEZ MD at 1405 CC: [id number] DICTATION DATE: 04/24/17 1258 SURGICAL PROCESSOR: 04/24/17 1333 ADM IN [place] [id number] [place] [id number]
--- NOTE | 2017-05-02 15:38 | NUR ---
CARE TEAM MEETING: SON ATTENDED MEETING ALL QUESTIONS AND CONCERNS WERE ADDRESSED.TENATIVE DISCHARGE DATE IS 05/08/17. SPOKE WITH ELENA AT [facility] TO COME AND EVAL PATIENT BEFORE RETURN PER SON REQUEST. WILL CONTNUE TO FOLLOW WITH PATIENT
--- NOTE | 2017-05-02 16:07 | NUR ---
CARE TEAM MEETING: SON ATTENDED MEETING. ALL QUESTIONS AND CONCERNS ADDRESSED. TENATIVE DISCHARGE DATE IS 05/08/17. SPOKE WITH ELENA AT [facility] TO COME AND EVAL TO SEE IF PATIENT WILL BE ABLE TO RETURN THERE AT DISCHARGE . WILL CONTINUE TO FOLLOW WITH PATIENT.
--- NOTE | 2017-05-02 19:42 | NUR ---
PT IS RESTING IN BED WATCHING TV. ALERT AND ORIENTED X 3. PT STATES SHE HAD A HORRIBLE DAY, BUT WOULD NOT SAY WHY. SHE HAS NO SPECIFIC COMPLAINTS AT THIS TIME. TELEMETRY UNIT IS ON AND INTACT. SR'S ARE UP X 3 IN BED. CALL LIGHT AND BEDSIDE TABLE ARE WITHIN EASY REACH.
[2017-05-02 20:05] VITALS: BP 101/58
--- NOTE | 2017-05-02 21:32 | NUR ---
PT IS RESTING IN BED WATCHING TV. NO NEEDS VOICED.
--- NOTE | 2017-05-02 23:25 | NUR ---
RESTING IN BED WITH EYES OPEN. AWOKE TO VERBAL STIMULI. INCONTINENT CARE GIVEN.
--- NOTE | 2017-05-03 01:26 | NUR ---
RESTING IN BED WITH EYES CLOSED. NO S/S OF DISTRESS OBSERVED. HOB ELEVATED TO 30 DEGREES PER PT PREFFERENCE. CALL LIGHT AND OVERBED TABLE IN REACH.
--- NOTE | 2017-05-03 05:52 | NUR ---
INC. CARE GIVEN TO PT AT THIS TIME. NO FURTHER NEEDS VOICED. PT IS VERY ABRUPT THIS AM. DOES NOT WANT TO BE AWOKEN.
--- NOTE | 2017-05-03 08:04 | NUR ---
REFUSED TO EAT BREAKFAST. TOOK MEDS WITH OJ BUT WOULD NOT EAT.
[2017-05-03 13:22] VITALS: BP 132/57
--- NOTE | 2017-05-03 13:42 | NUR ---
SITTING UP IN W/C. FAMILY AWARE OF PT SKIPPING MEALS. BRACE TO RLE. HAVING PERIODS OF CONFUSION
--- NOTE | 2017-05-03 16:27 | NUR ---
RESTING QUIETLY IN BED. EYES CLOSED, MOUTH OPEN, RESP EFFORT NOT LABORED. CALL LIGHT IN REACH
--- NOTE | 2017-05-03 19:30 | NUR ---
REST IN BED AND WATCH TV.
--- NOTE | 2017-05-03 23:50 | NUR ---
CHANGED BATTERIES IN PATIENT'S TELEMETRY UNIT AND VERIFIED FUNCTION OF UNIT WITH MONITORING STATION. PATIENT DENIES NEEDS.
[2017-05-04 01:14] VITALS: BP 107/51
--- NOTE | 2017-05-04 02:29 | NUR ---
REST IN BED, AND WATCH TV.
--- NOTE | 2017-05-04 03:38 | NUR ---
REST IN BED, EYE CLOSE, BED LOW, CALL LIGHT WITHIN REACH.
--- NOTE | 2017-05-04 08:01 | NUR ---
SITTING UP IN BED FOR BREAKFAST. DID NOT WANT TO EAT BUT AGREED TO DRINK OJ
[2017-05-04 09:10] VITALS: BP 135/62
--- NOTE | 2017-05-04 12:03 | NUR ---
SPOKE WITH GISEL FROM [facility] AND PATIENT WILL DISCHARGE BACK TO HER HOME ON 05/08/17. GISEL WILL NOTIFIY SON
--- NOTE | 2017-05-04 12:58 | NUR ---
SITTING UP IN BED EATING A LITTLE BIT OF LUNCH. STILL APPEARS EASILY AGGITATED AND HOSTILE AT TIMES. APPETITE HAS BEEN POOR LATELY. INCONT OF URINE
[2017-05-04 19:53] VITALS: BP 124/55
--- NOTE | 2017-05-04 19:53 | NUR ---
RESTING IN BED WITH HOB ELEVATED PER PT. REQUEST. PLEASANT AND SMILING. DENIES ANY PAIN. INCONTINENT OF BLADDER. RESPIRATIONS EVEN AND UNLABORED. CALL LIGHT AND OVERBED TABLE IN REACH.
[2017-05-04 20:27] VITALS: BP 130/45
--- NOTE | 2017-05-04 21:39 | NUR ---
RESTING IN BED WITH EYES CLOSED. NO S/S OF DISTRESS OBSEVRED.
--- NOTE | 2017-05-05 00:09 | NUR ---
RESTING IN BED WITH EYES CLOSED. NO S/S OF DISTRESS OBSERVED. CALL LIGHT IN REACH.
[2017-05-05 08:00] VITALS: BP 106/94
--- NOTE | 2017-05-05 08:00 | NUR ---
SHIFT ASSMT COMPLETED.CL IN REACH.MEAL SET-UP PROVIDED.
--- NOTE | 2017-05-05 11:35 | NUR ---
SITTING UP IN CHAIR.STATES SHE IS LEAVING.REMOVED TELEMETRY AND WOULD NOT ALLOW TO PLACE BACK ON HER.
--- NOTE | 2017-05-05 13:45 | NUR ---
HAS GOTTEN UP OUT OF CHAIR ON HER OWN W/O ASSIST.STATES SHE WANTS TO LEAVE NOW;HAS PERSONAL BELONGINGS PACKED IN A PILLOW CASE.REMOVED ALARM X2 NOW.
--- NOTE | 2017-05-05 14:30 | NUR ---
SITTING AT DESK WITH NURSE SUPERVISION.NOTIFIED SON AND STATED HE WILL COME AND TALK WITH HER.
--- NOTE | 2017-05-05 19:10 | NUR ---
SIT UP IN BED AND WATCH TV.
--- NOTE | 2017-05-05 19:50 | NUR ---
PT. IN BED WITH HOB UP FOR COMFORT AND IS WATCHING TV. NO VOICED NEEDS AND HER CALL LIGHT IS WITHIN REACH.
--- NOTE | 2017-05-05 23:10 | NUR ---
PT ARE VERY CONFUSED AND HAS ANXIETY, STATE SHE WANT TO GO HOME NOW, REDIRECT, AND CALM DOWN PT. AND ANTIVAN GIVEN. CONTINUE MONITOR PT CLOSELY.
[2017-05-06 00:10] VITALS: BP 108/87
--- NOTE | 2017-05-06 01:46 | NUR ---
REST IN BED, EYE CLOSE, BED LOW, CALL LIGHT WITHIN REACH.
--- NOTE | 2017-05-06 03:10 | NUR ---
INCONTINENCE, CLEAN, CHANGE GOWN AND LINEN.
[2017-05-06 08:00] VITALS: BP 142/63
--- NOTE | 2017-05-06 08:00 | NUR ---
SHIFT ASSMT COMPLETED.SLEEPY TODAY.REFUSES TO EAT BREAKFAST.SLUMPS OVER AND FALLS BACK TO SLEEP,STATES LEAVE ME ALONE.POS FOR COMFORT.CL IN REACH.
--- NOTE | 2017-05-06 12:00 | NUR ---
FAMILY PRESENT.CONSUMED FEW BITES OF WATERMELON BROUGHT IN BY FAMILY BUT DID REFUSE LUNCH THAT WAS OFFERED.REPOSITIONED FOR COMFORT.CL IN REACH.
--- NOTE | 2017-05-06 16:00 | NUR ---
INCONTINENT OF URINE.BED BATH GIVEN.LINENS AND GOWN CHANGED.CL IN REACH.
--- NOTE | 2017-05-06 19:30 | NUR ---
PT RESTING IN BED, RESPIRATIONS EVEN, WILL CONTINUE TO MONITOR, CALL LIGHT WITHIN REACH.
--- NOTE | 2017-05-06 19:46 | NUR ---
PT. IN BED WITH HOB UP FOR COMFORT WITH EYES CLOSED AND RESP. DEEP AND EVEN. CALL LIGHT WITHIN REACH.
[2017-05-06 20:24] VITALS: BP 119/44
--- NOTE | 2017-05-06 20:30 | NUR ---
NIGHT MEDICATION GIVEN, PT TOLERATED WELL, VITAL SIGNS TAKEN, PT STATES NO NEEDS AT THIS TIME, WILL CONTINUE TO MONITOR, CALL LIGHT WITHIN REACH.
--- NOTE | 2017-05-06 22:35 | NUR ---
PT RESTING IN BED, RESPIRATIONS EVEN, SIDE RAILS UP X'S 2, BED IN LOW POSITION, POSSY ALARM ON, CALL LIGHT WITHIN REACH. WILL CONTINUE TO MONITOR.
--- NOTE | 2017-05-07 00:33 | NUR ---
PT RESTING QUIETLY IN BED, RESPIRATIONS EVEN, SIDE RAILS UP X'S 2, BED IN LOW POSITION, CALL LIGHT WITHIN REACH, WILL CONTINUE TO MONITOR.
--- NOTE | 2017-05-07 02:04 | NUR ---
PT RESTING QUIETLY IN BED, RESPIRATIONS EVEN, SIDE RAILS UP X'S 2, BED IN LOW POSITION, CALL LIGHT WITHIN REACH, WILL CONTINUE TO MONITOR.
--- NOTE | 2017-05-07 03:40 | NUR ---
PT RESTING QUIETLY, RESPIRATIONS EVEN, BED IN LOW POSITION, SIDE RAILS UP X'S 2, CALL LIGHT WITHIN REACH, WILL CONTINUE TO MONITOR.
--- NOTE | 2017-05-07 05:57 | NUR ---
PT INCONTINENT, BED BATH GIVEN, BOTTOM PAD CHANGED, DEPENDS CHANGED, MORNING MEDICATION GIVEN, PT TOLERATED WELL, WILL CONTINUE TO MONITOR, CALL LIGHT WITHIN REACH.
[2017-05-07 09:06] VITALS: BP 121/60
--- NOTE | 2017-05-07 09:18 | NUR ---
PT AM MEDS ADMINISTERD. PT SITTING UP IN BED EATING BREAKFAST, DENIES NEEDS. WCTM.
--- NOTE | 2017-05-07 11:22 | NUR ---
PT IN THERAPY, TOLERATING WELL. DENIES NEEDS. WCTM.
--- NOTE | 2017-05-07 19:20 | NUR ---
PT IS RESTING IN BED WITH EYES CLOSED. AWOKE EASILY TO VERBAL STIMULI. PT NOTED TO BE VERY INCONTINENT OF URINE AT THIS TIME. INC. CARE AND PAD CHANGE DONE. PT WAS VERY FRIENDLY AND COOPERATIVE WITH CARE. VSS. SR'S ARE UP X 3 IN BED. CALL LIGHT AND BEDSIDE TABLE ARE WITHIN EASY REACH.
--- NOTE | 2017-05-07 21:09 | NUR ---
RESTING QUIETLY IN BED WITH EYES CLOSED. RESPS ARE EVEN AND UNLABORED. NO ACUTE DISTRESS NOTED.
[2017-05-07 22:14] VITALS: BP 129/64
--- NOTE | 2017-05-08 00:10 | NUR ---
IN BED, EYES CLOSED. RESTING QUIETLY.
--- NOTE | 2017-05-08 01:13 | NUR ---
PT IS RESTING QUIETLY IN BED WITH EYES CLOSED. RESPS ARE EVEN AND UNLABORED. NO ACUTE DISTRESS NOTED.
--- NOTE | 2017-05-08 04:48 | NUR ---
PT IS RESTING IN BED WITH EYES CLOSED.
[2017-05-08 07:00] VITALS: BP 115/48
--- NOTE | 2017-05-08 08:20 | NUR ---
PT AM MEDS ADMINISTERED. PT DENIES NEEDS AT THIS TIME. WCTM. BED LOW. CL IN REACH.
--- NOTE | 2017-05-08 10:30 | NUR ---
PT DISCHARGED BEING HELD 24 HOURS PER TIEN RABAGO. TIEN SPOKE WITH SON AND HE WOULD LIKE FURHTER EVALUATION.
--- NOTE | 2017-05-08 17:43 | NUR ---
PT EATING DINNER, DENIES NEEDS. FAMILY AT BEDSIDE. WCTM.
--- NOTE | 2017-05-08 19:35 | NUR ---
PT IS RESTING IN BED WATCHING TV. ALERT AND ORIENTED X3. PT IS VERY CALM AND COOPERATIVE AT THIS TIME. SHE CALLED ME BY MY NAME, WHICH SHE HASNT DONE BEFORE. NO INCONTINENCE NOTED AT THIS TIME. SR'S ARE UP X 3 IN BED. CALL LIGHT AND BEDSIDE TABLE ARE WITHIN EASY REACH.
[2017-05-08 20:00] VITALS: BP 107/44
--- NOTE | 2017-05-08 21:06 | NUR ---
PT IS RESTING IN BED WATCHING TV. NO NEEDS VOICED.
--- NOTE | 2017-05-09 00:01 | NUR ---
PT RESTING IN BED WITH EYES CLOSED. INC. CARE GIVEN PRN.
--- NOTE | 2017-05-09 02:25 | NUR ---
RESTING IN BED WITH EYES CLOSED. NO S/S OF DISTRESS OBSERVED. HOB ELEVATED. CALL LIGHT IN REACH.
--- NOTE | 2017-05-09 05:55 | NUR ---
PT RESTING IN BED WITH EYES CLOSED. AWOKE EASILY TO VERBAL STIMULI. INC. CARE GIVEN. NO FURTHER NEEDS VOICED.
[2017-05-09 08:02] VITALS: BP 126/55
--- NOTE | 2017-05-09 10:32 | NUR ---
Nutrition Follow Up: Pt reported that she has a decreased appetite and is ready to go home. Pt is eating 17% meal avg on a regular diet. She is receiving Ensure TID. +BM 05/01/17. No new wt. Labs reviewed. Meds noted including Lasix. Rec continue current diet, supplement regimen. RD following.
--- NOTE | 2017-05-09 10:49 | NUR ---
PT DISCHARGE INSTRUCTIONS REVIEWED AND SIGNED. [facility] CONTACTED AND STATED THEY WOULD SEND SOMEONE TO PICK HER UP. PT IS DRESSED AND "READY TO GO!"
--- NOTE | 2017-05-09 10:54 | NUR ---
Patient is to discharge to [facility] today. They will pick her up. Myrna at home [facility] will follow up with her for PT,ST,OT and nursing O&A. Faxed all information to [facility]. Follow up appt made with Dr Proctor for [place] May 15, at 9:40. Called and spoke to Naila Toro RN CM for Dr Proctor and made her aware of the patient discharge and follow up appt. The patient and her son are aware of discharge plan and agree. Elva Torres RN CM
--- NOTE | 2017-05-09 12:50 | NUR ---
[facility] ARRIVED. PT TAKEN TO CAR VIA ACCOMPANIED BY [facility] STAFF AND HOSPITAL STAFF. SEAT BELT IN PLACE.
== END 2017-05-09 12:51 | disposition home health service (06) | DRG 948 ==
LOC: D.REHAB 20:23
PROVIDERS: ADMIT Emergency Medicine
DX: R53.81 Other malaise (principal); N39.0 Urinary tract infection, site not specified; E87.1 Hypo-osmolality and hyponatremia; I10 Essential (primary) hypertension; R53.1 Weakness; I95.9 Hypotension, unspecified; R32 Unspecified urinary incontinence; K21.9 Gastro-esophageal reflux disease without esophagitis; B96.20 Unspecified Escherichia coli [E. coli] as the cause of diseases classified elsewhere

== ENCOUNTER 2017-07-15 23:24 | Inpatient (IN) | payer MEDICARE, BC ==
[~2017-07-15] VITALS: Ht 157.5 cm; Wt 56.8 kg
[2017-07-16 00:53] LABS: BASOPHILS 0.2 % (0-2); EOSINOPHILS 0 % (0-7); HEMATOCRIT 40.1 % (36.0-48.0); HEMOGLOBIN 13.9 g/dL (12-16); IMMATURE GRANULOCYTES 0.3 % (0-5); LYMPHOCYTES 21.3 % (15-50); MCH 31.2 pg (26.0-34.0); MCHC 34.7 g/dL (31.0-37.0); MCV 90.1 fL (80.0-100.0); MEAN PLATELET VOLUME 9.4 fL (7.4-10.4); MONOCYTES 8.8 % (2-11); NEUTROPHILS 69.4 % (40-80); PLATELET COUNT 270 10x3/uL (130-400); RBC 4.45 10x6/uL (4.00-5.40); RDW 12.6 % (11.5-14.5); WBC 9.4 10x3/uL (4.8-10.8)
[2017-07-16 01:12] LABS: ALBUMIN 3.3 g/dL (3.4-5.0); ALKALINE PHOSPHATASE 73 U/L (46-116); ALT (SGPT) 19 U/L (10-68); BILIRUBIN - TOTAL 0.82 mg/dL (0.2-1.3); CALC OSMOLALITY 276 mosm/kg (275-300); CALCIUM 8.8 mg/dL (8.5-10.1); CARBON DIOXIDE 21.1 mmol/L (21.0-32.0); CHLORIDE - SERUM 101 mmol/L (98-107); CREATININE - SERUM 0.8 mg/dL (0.6-1.3); GLUCOSE 112 mg/dL (74-106); POTASSIUM - SERUM 3.1 mmol/L (3.5-5.1); PROTEIN - SERUM 7.2 g/dL (6.4-8.2); SODIUM 137 mmol/L (136-145); UREA NITROGEN 17 mg/dL (7-18); eGFR NON AFRICAN AMERICAN 72 mL/min (90-120)
[2017-07-16 01:20] LABS: APPEARANCE TURBID (CLEAR); BILIRUBIN NEGATIVE (NEGATIVE); COLOR YELLOW (YELLOW); GLUCOSE NEGATIVE (NEGATIVE); KETONE MODERATE mg/dL (NEGATIVE); NITRITE POSITIVE (NEGATIVE); PROTEIN 1+ mg/dL (NEGATIVE); UROBILINOGEN NORMAL (NORMAL)
[2017-07-16 01:24] LABS: CREATINE KINASE 38 UL (21-215); MAGNESIUM - SERUM 2.1 mg/dL (1.8-2.4); PRO BNP 1414 pg/mL (0-450)
[2017-07-16 01:27] LABS: BACTERIA MANY /hpf (NONE SEEN); EPITHELIAL CELLS 0-5 /hpf (0-5); GRANULAR CAST OCC /lpf (NONE SEEN); HYALINE CAST OCC /lpf (NONE SEEN); MUCUS >1+ /lpf (NONE SEEN); WHITE CELLS - URINE >50 /hpf (0-5)
[2017-07-16 01:27] LABS: TROPONIN-I < 0.017 ng/mL (0.000-0.060)
--- NOTE | 2017-07-16 07:40 | NUR ---
ASSESSMENT DONE. DENIES NEEDS.
[2017-07-16 08:00] VITALS: BP 115/551
--- NOTE | 2017-07-16 10:04 | NUR ---
ARELI NEEDS AT THIS TIME. CALL LIGHT IN REACH. MULLINS INTACT. WILL CONT. PLAN OF CARE.
[2017-07-16 12:00] VITALS: BP 103/50
[2017-07-16 16:00] VITALS: BP 106/52
--- NOTE | 2017-07-16 16:38 | NUR ---
WITHOUT CHANGES OR DISTRESS NOTED AT THIS TIME. DENIES NEEDS.
[2017-07-16 21:02] VITALS: BP 106/52
[2017-07-17 00:30] VITALS: BP 140/50
--- NOTE | 2017-07-17 03:32 | NUR ---
PATIENT PULLED CURRENT IV ACCESS OUT, NEW ACCESS STARTED IN RIGHT FA. CALL LIGHT IN REACH, INSTRUCTED PATIENT TO NOT TOUCH HER IV SITE.
[2017-07-17 05:26] LABS: BASOPHILS 0.1 % (0-2); EOSINOPHILS 0.3 % (0-7); HEMATOCRIT 41.5 % (36.0-48.0); HEMOGLOBIN 14.3 g/dL (12-16); IMMATURE GRANULOCYTES 0.3 % (0-5); LYMPHOCYTES 18.5 % (15-50); MCH 31.2 pg (26.0-34.0); MCHC 34.5 g/dL (31.0-37.0); MCV 90.4 fL (80.0-100.0); MEAN PLATELET VOLUME 9.6 fL (7.4-10.4); MONOCYTES 12.7 % (2-11); NEUTROPHILS 68.1 % (40-80); PLATELET COUNT 307 10x3/uL (130-400); RBC 4.59 10x6/uL (4.00-5.40)
[2017-07-17 05:37] LABS: WBC 12.7 10x3/uL (4.8-10.8)
[2017-07-17 05:42] LABS: ANION GAP 14.5 mmol/L (8-16); CALCIUM 9.1 mg/dL (8.5-10.1); CARBON DIOXIDE 25.2 mmol/L (21.0-32.0); CREATININE - SERUM 0.9 mg/dL (0.6-1.3)
[2017-07-17 05:48] LABS: POTASSIUM - SERUM 2.7 mmol/L (3.5-5.1)
--- NOTE | 2017-07-17 05:57 | NUR ---
CRITICAL POTASSIUM OF 2.7 THIS MORNING, SPOKE WITH DR PRUITT AND GOT A PHONE ORDER TO INCREASE K-DUR DOSE TO 40 MEQ PER DAY, DO 60 MEQ TODAY A 1 TIME DOSE. WILL FOLLOW UP ON LABS TOMORROW MORNING.
[2017-07-17 06:03] VITALS: BP 135/63
--- NOTE | 2017-07-17 07:10 | NUR ---
RECEIVED REPORT. ASSUMED CARE OF PATIENT. CALL LIGHT WITHIN REACH. PATIENT ORIENTED TO PERSON ONLY. THINKS SHE IS IN [place] AND IT IS 2011. REORIENTED PATIENT. PATIENT WAS ATTEMPING TO GET OOB. BED ALARM SET AT THIS TIME. RESP EVEN AND UNLABORED. NO DISTRESS.
[2017-07-17 08:07] VITALS: BP 139/60
--- NOTE | 2017-07-17 09:30 | NUR ---
COMPLETE LINEN CHANGE AT THIS TIME DUE TO INCONTINENCE.
[2017-07-17 09:38] VITALS: Ht 157.5 cm; Wt 56.8 kg
--- NOTE | 2017-07-17 10:11 | NUR ---
22 GAUGE IV PLACED X 1 STICK TO LEFT FOREARM. GOOD BLOOD RETURN, EASY FLUSH. TAPED, DATED AND SECURED. TOLERATED IV PLACEMENT WELL. 22 GAUGE IV REMOVED FROM RIGHT FOREARM ARE APPEARED INFILTRATED, DIFFICULT TO FLUSH. CATHETER TIP INTACT. NO BLEEDING FROM SITE. NO DISTRESS. PATIENT TOLERATED PLACEMENT OF NEW AND REMOVAL OF OLD IV WELL.
--- NOTE | 2017-07-17 13:16 | HP ---
PATIENT: BUBBA TOBAR MEDICAL RECORD: [id number] ACCOUNT: [id number] LOCATION:[address] : [birth year] ADMISSION DATE: 07/16/17 HISTORY AND PHYSICAL EXAMINATION DATE OF ADMISSION: 07/16/2017 CHIEF COMPLAINT: Not feeling well and confusion. HISTORY OF PRESENT ILLNESS: This is an 86-year-old white female who is a resident at [facility]. She is just not been feeling well the last few days. She tells me that she has no fever, chills, nausea, or vomiting. No chest pain or shortness of breath. She seems to have to urinate a little bit more frequently, had maybe a little discomfort when she goes. Bowel movements are reportedly okay. She was brought to the ER in the middle of the night. EKG showed normal sinus rhythm, nonspecific T-wave changes. Urinalysis was yellow and turbid with greater than 50 white blood cells, many bacteria, and 0-5 epithelial cells. Lactic acid level was 1.5. CBC was okay. Basic metabolic panel is okay except potassium was 3.1. She is admitted for urinary tract infection with confusion. PAST MEDICAL AND SURGICAL HISTORY: She has CVA in 2004 with a resultant right foot drop. She has history of hypertension, allergies, depression, overactive bladder, and arthritis. PAST SURGICAL HISTORY: Cataract. HABITS: No tobacco, alcohol or drugs. SOCIAL HISTORY: , retired and lives at [facility]. FAMILY HISTORY: Noncontributory. REVIEW OF SYSTEMS: GENERAL: No major weight changes. HEENT: She does have occasional allergy problems. RESPIRATORY: She has a history of some mild asthma. CARDIAC: Has high blood pressure, but no known coronary disease. GASTROINTESTINAL: Some reflux at times. GENITOURINARY: Occasional urinary tract infections. She does have overactive bladder. MUSCULOSKELETAL: No arthritic aches and pains. NEUROLOGIC: Stroke in 2004 with residual right leg weakness and foot drop. PSYCHIATRIC: She has some depression. PHYSICAL EXAMINATION: VITAL SIGNS: Today, temperature 99.9, pulse 89, respirations 20, blood pressure 129/63, O2 sat 99%. GENERAL: She is awake and alert. She is eating breakfast. She is pleasant. SKIN: Warm and dry. HEENT: Grossly within normal limits. NECK: Supple. No JVD or bruits. HEART: Regular rate and rhythm. LUNGS: Fairly clear. ABDOMEN: Soft, nontender. No guarding, no rebound, no mass. HISTORY AND PHYSICAL [id number] BUBBA TOBAR EXTREMITIES: No edema. DIAGNOSTIC DATA: EKG, normal sinus rhythm, nonspecific T-wave abnormalities. Urinalysis is yellow, turbid, moderate ketones, 2+ blood, 10-25 red blood cells, greater than 50 white blood cells, many bacteria, 0-5 epithelial cells. Lactic acid is 1.5. CBC with a white count of 9400, hemoglobin 13.9, hematocrit 40.1, and 270,000 platelets. Basic metabolic panel is all okay except potassium 3.1. Liver functions were okay. ProBNP 1414. ASSESSMENT: 1. Urinary tract infection. 2. Acute confusion. 3. Elevated proBNP suggestive of congestive heart failure, but I do not think she has a diagnosis of congestive heart failure. PLAN: Blood cultures and urine culture, start antibiotics. We will order echo, physical therapy. Other tests and procedures as warranted. TRANSINT:[id number] Voice Confirmation ID: [id number] DOCUMENT ID: [id number] GABRIELLA ALLISON MD at 1316 CC: [id number] DICTATION DATE: 07/16/17 0832 CLAM SHUCKER: 07/16/17 1009 ADM IN [place] [id number] [place] [address]
[2017-07-17 13:38] VITALS: BP 103/55
[2017-07-17 16:52] VITALS: BP 109/58
--- NOTE | 2017-07-17 17:30 | NUR ---
RESTING IN BED WITH EYES CLOSED. CALL LIGHT WITHIN REACH. NO DISTRESS.
--- NOTE | 2017-07-17 19:04 | NUR ---
REPORT GIVEN TO ONCOMING NURSE. NO DISTRESS.
--- NOTE | 2017-07-17 19:40 | NUR ---
PT IN BED. VERY CONFUSED A&Ox1. PT STATED "IF YOU DONT LEAVE, I'M GOING TO SHOOT YOU WITH MY 45"
[2017-07-17 21:53] VITALS: BP 134/62
[2017-07-18 02:37] VITALS: BP 114/55
[2017-07-18 05:16] VITALS: BP 129/73
[2017-07-18 05:31] LABS: CALC OSMOLALITY 278 mosm/kg (275-300); CALCIUM 8.8 mg/dL (8.5-10.1); CHLORIDE - SERUM 104 mmol/L (98-107); GLUCOSE 102 mg/dL (74-106); POTASSIUM - SERUM 3.5 mmol/L (3.5-5.1); SODIUM 139 mmol/L (136-145); UREA NITROGEN 16 mg/dL (7-18)
[2017-07-18 05:32] LABS: CREATININE - SERUM 0.6 mg/dL (0.6-1.3); eGFR NON AFRICAN AMERICAN > 90 mL/min (90-120)
--- NOTE | 2017-07-18 05:41 | NUR ---
PT LYING IN BED RESTING COMFORTABLY. NO NEEDS. CONTINUE TO MONITOR CLOSELY.
--- NOTE | 2017-07-18 07:15 | NUR ---
REPORT RECEIVED. RR EVEN AND UNLABORED. PT DENIES NEEDS AT THIS TIME. BED IN LOWEST POSTION, CALL ORTIZ IN REACH, SIDE RAILS UP X2. WILL CTM.
[2017-07-18 09:29] VITALS: BP 126/62
--- NOTE | 2017-07-18 10:25 | NUR ---
PT IS REFUSING MEDS AT THIS TIME. PT SAID "LEAVE ME ALONE." ATTEMPTED TO BITE ME WHEN I OFFERED HER NOURSHIMENT. WILL ATTEMPT TO GIVE MEDS AGAIN LATER TODAY. WILL CTM.
--- NOTE | 2017-07-18 11:35 | NUR ---
PT APPROACHED THE DESK VERY AGITATED REGARDING THE NURSE NOT GOING IN THE ROOM. EXPLAINED TO FAMILY MEMBER THAT I HAVE NOT BEEN ABLE TO GO DISCUSS CARE WITH THEM DUE TO HAVING 7 PATIENTS AND BEING VEY BUSY THIS MORNING. VERBALIZED UNDERSTANDING. DISCUSSED LAB RESULTS AND MD NOTES FROM 07/17 WITH FAMILY. FAMILY THANKED ME AND SEEMED SATISFIED WITH THE INFORMATION GIVEN.
--- NOTE | 2017-07-18 15:30 | NUR ---
PT RESTING QUIETLY, RR EVEN AND UNLABORED. PT STILL NOT COOPERATIVE WITH CARE, WILL CTM.
[2017-07-18 15:31] VITALS: BP 108/46
--- NOTE | 2017-07-18 18:00 | NUR ---
PT RESTING QUIETLY, RR EVEN AND UNLABORED. PT DENIES NEEDS AT THIS TIME. TURNED PT AND CHANGED ALBA PAD. PT IS STILL CONFUSED, BUT ALLOWED US TO TURN HER EASILY. PT NOT COMABATIVE AT THIS TIME. WILL GIVE REPORT ON PT CONDTION FOR THE DAY.
[2017-07-18 21:32] VITALS: BP 115/54
--- NOTE | 2017-07-18 23:27 | NUR ---
PATIENT SLEEPING SOUNDLY WITH MOUTH OPEN. SCANT AMOUNT OF DARK URINE IN MULLINS CATH BAG. IV IN LEFT FOREARM IS CLEAN DRY AND INTACT.
[2017-07-19 02:45] VITALS: BP 115/56
[2017-07-19 04:42] VITALS: BP 120/60
--- NOTE | 2017-07-19 04:51 | NUR ---
PATIENT SLEEPING SOUNDLY.
--- NOTE | 2017-07-19 09:30 | NUR ---
MORNING MEDICATIONS GIVEN, SEE EMAR. PATIENT DENIES ANY PAIN AT THIS TIME. CPOC. BED LOW AND LOCKED. CALL LIGHT IN REACH.
[2017-07-19 09:45] VITALS: BP 116/53
--- NOTE | 2017-07-19 11:45 | NUR ---
PATIENT FAMILY AT BEDSIDE. PATIENT EATINGLUNCH, DENIES ANY NEEDS. CPOC
[2017-07-19 12:30] VITALS: BP 108/49
--- NOTE | 2017-07-19 12:42 | NUR ---
LEFT MESSAGE FOR DR ALLISON'W NURSE TO CALL BACK, PATIENT C/O OF RIGHT FOOT PAIN, NEEDING TYLENOL. CPOC
--- NOTE | 2017-07-19 13:55 | NUR ---
PHYSICAL THERAPY AT BEDSIDE WORKING WITH PATIENT. CPOC
--- NOTE | 2017-07-19 14:45 | NUR ---
PATIENT SITTING UP IN CHAIR AT THIS TIME, DENIES ANY NEEDS AT THIS TIME. CPOC
[2017-07-19 16:51] VITALS: BP 102/50
--- NOTE | 2017-07-19 17:26 | NUR ---
PATIENT SITTING UP IN BED, FAMILY AT BEDSIDE. PATIENT EATING DINNER. C/O OF FOOT PAIN 04/19, WILL GIVE TYLENOL. CPOC
--- NOTE | 2017-07-19 18:03 | NUR ---
PATIENT RESTING IN BED. REASSESSED PAIN, STATES 7/10 AND THINKS THE TYLENOL HAS HELPED SOME. NO REQUESTS AT THIS TIME. CPOC.
--- NOTE | 2017-07-19 18:55 | NUR ---
END OF SHIFT ROUNDS MADE. PATIENT RESTING IN BED WITH EYES CLOSED. HELPED HER REPOSITION. NO REQUESTS AT THIS TIME. CALL LIGHT IN REACH. BED IN LOWEST POSITION AND LOCKED. CPOC.
--- NOTE | 2017-07-19 19:38 | NUR ---
PT IN BED RESTING. AROUSES TO VOICE. DENIES NEEDS AT THIS TIME.
[2017-07-19 20:00] VITALS: BP 103/46
[2017-07-20 04:00] VITALS: BP 103/49
--- NOTE | 2017-07-20 04:44 | NUR ---
PT ASLEEP. BREATHING THROUGH MOUTH. RESPIRATIONS HAVE A RRR. NO S/S OF DISTRESS. WILL CPOC
--- NOTE | 2017-07-20 08:01 | NUR ---
AM ROUNDS - PT IS IN BED AND AWAKE AT THIS TIME. IV TO LEFT SL. SUSANNA JARRELL. PT HAS NO NEEDS AT THIS TIME. BED AT LOWEST POSITION. CALL ORTIZ IN USE/REACH. SIDE RAILS UP X2. WILL CONTINUE TO MONITOR
[2017-07-20 08:18] VITALS: BP 111/47
--- NOTE | 2017-07-20 10:48 | NUR ---
Nutrition follow-up: Diet: Low sodium PO intake ~25% of some meals +BM Wt: 122# -> down 4# from admit wt Labs reviewed PO intake remains poor at this time RDN will order Ensure with meals to increase kcal, protein intake. RDN following.
[2017-07-20 12:30] VITALS: BP 97/44
--- NOTE | 2017-07-20 17:42 | NUR ---
PT IN BED AT THIS TIME WITH NO NEEDS. WILL CONTINUE TO MONITOR
--- NOTE | 2017-07-20 19:40 | NUR ---
PT IN BED WATCHING TELEVISION. DENIES NEEDS AT THIS TIME.
[2017-07-20 20:00] VITALS: BP 109/46
[2017-07-21] VITALS: BP 107/47
--- NOTE | 2017-07-21 07:18 | NUR ---
RECEIVED REPORT. ASSUMED CARE OF PATIENT. CALL LIGHT WITHIN REACH. RESTING WITH EYES CLOSED. NO DISTRESS. EASILY AROUSED. RESP EVEN AND UNLABORED.
[2017-07-21 08:22] VITALS: BP 121/60
--- NOTE | 2017-07-21 10:00 | NUR ---
PATIENT SITTING UP TO CHAIR AT BEDSIDE. FAMILY AT BEDSIDE. NO DISTRESS. UP WITH PHYSICAL THERAPY AT THIS TIME.
[2017-07-21 12:24] VITALS: BP 101/46
--- NOTE | 2017-07-21 17:10 | NUR ---
RESTING IN BED WITH EYES OPEN. NO DISTRESS. CALL LIGHT WITHIN REACH. DENIES NEEDS.
--- NOTE | 2017-07-21 19:26 | NUR ---
PT PULLING ITEMS OUT OF HER BEDSIDE TABLE. SHE IS AAO TO NAME ONLY. PT STATES SHE IS UPSET THAT HER FAMILY NEVER CAME TO GET HER AND HAVE NOT VISITED HER TODAY. JAY STATED IN REPORT THAT PT FAMILY WAS IN HER ROOM VISITING TODAY. REASSURED PT THAT FAMILY WAS THERE TODAY. SHE GOT MORE UPSET, STATING "WHY DIDNT THEY SEE ME" JAY STATED THIS IS HER BASELINE LOC. NAME AND DATE PLACED ON BOARD. PT DENIES ANY NEEDS. NO S/S OF DISTRESS. BED ALARM ON AND ACTIVE. WILL CPOC
[2017-07-21 20:00] VITALS: BP 94/67
--- NOTE | 2017-07-21 20:20 | NUR ---
PT AAO TO NAME ONLY. PT ON BEDPAN. TOOK HER OFF AND SHE HAD A SMALL BM. REPOSITIONED PT IN BED. JUSTIN THE FOREIGN EXCHANGE CLERK MADE A PLAN WITH PT TO GIVE HER A BATH AFTER SHE IS DONE WITH VITALS. PT HAS BED ALARM ON AND ACTIVE. BED LOW AND CALL LIGHT IN REACH. WILL CPOC
[2017-07-22] VITALS: BP 128/58
--- NOTE | 2017-07-22 02:00 | NUR ---
PT ASLEEP. RESPIRATIONS EVEN AND UNLABORED. NO S/S OF DISTRESS. BED LOW AND CALL LIGHT IN REACH. WILL CPOC
[2017-07-22 04:00] VITALS: BP 119/52
--- NOTE | 2017-07-22 08:36 | NUR ---
AM ROUNDS - PT IS IN BED AND APPEARS TO BE SLEEPING WITH EQUAL AND NON LABORED BREATHING. YELLOW BAND ON. PT IS ON ROOM AIR. IV TO LEFT FA, SL. BED AT LOWEST POSITION. CALL ORTIZ IN USE/REACH. SIDE RAILS UP X2. MULLINS DRAINING. WILL CONTINUE TO MONITOR
[2017-07-22 12:04] VITALS: BP 100/42
[2017-07-22 16:12] VITALS: BP 115/46
--- NOTE | 2017-07-22 18:31 | NUR ---
LATE ENTRY FOR 07/21/17 1130 TC TO [facility] REGARDING DISCHARGE ORDERS. [facility] REFUSED TO ACCEPT PATIENT BACK OVER THE WEEKEND. STATED SOMEONE WOULD HAVE TO COME ON SITE TO EVAL THE PATIENT ON SUNDAY. CM FAXED CLINICAL UPDATE TO [phone].
--- NOTE | 2017-07-22 18:46 | NUR ---
PT RESTING IN BED WITH NO NEEDS AT THIS TIME. WILL COTNINEUT O MONITOR
--- NOTE | 2017-07-22 19:25 | NUR ---
RECEIVED REPORT, WILL ASSUME CARE OF PT, PT LAYING KALLI, ASK IF SHE NEEDS ANYTHING, SHE DENIES ANY NEEDS, BED IS LOW, SRX2, CALL LIGHT IN REACH, WILL CONTINUE PLAN OF CARE
[2017-07-22 20:00] VITALS: BP 116/53
[2017-07-23] VITALS: BP 128/54
[2017-07-23 04:00] VITALS: BP 110/53
--- NOTE | 2017-07-23 07:42 | NUR ---
AM ROUNDING- RECEIVED REPORT FROM FUNERAL PLANNING COUNSELOR NURSE SHARON. PT IS CURRENTLY LAYING IN BED ON BACK WITH EYES OPEN RESTING. ON ROOM AIR. ON MONITOR SHOWING SB, HR 58. IV SEEN TO LEFT FOREARM SALINE LOCKED. MULLISN CATHETER SEEN. NO NEED AT THIS CURRENT TIME. WILL CONTINUE TO MONITOR AND CONTINUE WITH PLAN OF CARE.
[2017-07-23 08:48] VITALS: BP 121/85
[2017-07-23 12:48] VITALS: BP 114/39
[2017-07-23 16:50] VITALS: BP 104/49
--- NOTE | 2017-07-23 17:53 | NUR ---
PT IS CURRENTLY SITTING UP IN BED WITH EYES OPEN RESTING. PT IS REFUSING TO EAT DINNER. NO NEED AT THIS CURRENT TIME. BED IS IN LOW POSITION, SIDE RAILS ARE UP X2, CALL LIGHT IS IN REACH, AND BED ALARM IS ON. WILL CONTINUE TO MONITOR.
--- NOTE | 2017-07-23 22:27 | NUR ---
DISCHARGE TO SR.CARE, NOTIFIED SON,CALLED REPORT TO TIFFANIE PAREKH IN SR C[facility], BRENDEN BAI TOOK PT TO SR CARE VIA WHEELCHAIR
== END 2017-07-23 22:36 | DRG 690 ==
LOC: D.ER 23:24 → D.M2 07-16 03:05
PROVIDERS: Emergency Medicine; ADMIT Family Medicine
PROC: 0T9B70Z Drainage of Bladder with Drainage Device, Via Natural or Artificial Opening (ICD-10-PCS; principal; 2017-07-16)
DX: N39.0 Urinary tract infection, site not specified (principal); F05 Delirium due to known physiological condition; I10 Essential (primary) hypertension; F32.9 Major depressive disorder, single episode, unspecified; I69.919 Unspecified symptoms and signs involving cognitive functions following unspecified cerebrovascular disease; F01.50 Vascular dementia, unspecified severity, without behavioral disturbance, psychotic disturbance, mood disturbance, and anxiety; B96.4 Proteus (mirabilis) (morganii) as the cause of diseases classified elsewhere

== ENCOUNTER 2017-07-23 22:51 | Inpatient (IN) | payer MEDICARE, BC ==
[~2017-07-23] VITALS: Ht 157.5 cm; Wt 56.8 kg
[2017-07-23 23:03] VITALS: BP 118/51; BMI 23.8
--- NOTE | 2017-07-24 00:09 | NUR ---
NEW ADMIT TO RESIDENTIAL FROM MED 2. ADMIT TO DOCTOR KAUFMAN FOR ALTERED MENTAL STATUS. PATIENT HAS RECEIVED TREATMENT ON MED 2 FOR A UTI. CURRENTLY HAS A MULLINS CATHETER INTACT. MULLINS WAS PLACED ON ADMIT IN [facility] EMERGENCY DEPARTMENT. PATIENT RECEIVED VIA WHEELCHAIR. CALM AND COOPERATIVE. ORIENTED TO SELF AND MONTH. STATES SHE IS ALLEGIC TO EVERYTHING. ATTEMTED TO CONTACT SON VIA PHONE BUT WAS UNABLE TO GET AN ANSWER. LEFT A VOICEMAIL TO CONTACT RESIDENTIAL. PATIENT ORIENTED TO UNIT. COOPERATIVE WITH ADMT ASSESSMENT. RESTING IN BED EYES OPEN AT THIS TIME. YELLS OUT AT TIMES. CONFUSED. REDIRECT AND REORIENT NEEDED.
[2017-07-24 07:07] LABS: CHOL - HDL RATIO 7.3 ratio (2.3-4.1); HEMOGLOBIN A1C 5.8 % (4.8-6.0); LDL-HDL RATIO 4.9 ratio (1.5-3.5); THYROID STIMULATING HORMONE 1.76 uIU/mL (0.36-3.74)
[2017-07-24 11:08] VITALS: BP 115/53
[2017-07-24 13:53] VITALS: BMI 23.8
[2017-07-24 20:06] VITALS: BP 101/41
--- NOTE | 2017-07-24 21:38 | NUR ---
RECEIVED IN BEDROOM. RESTING IN BED WITH EYES CLOSED. RESPONDS TO VOICE. CALM AND COOPERATIVE WITH CARE AND ASSESSMENTS. NO SIGNS OF AGGRESSION. CONFUSED. REDIRECT AND REORIENT NEEDED. RESTING IN BED EYES CLOSED AT THIS TIME. CONTINUE PLAN OF CARE
--- NOTE | 2017-07-25 05:14 | PSY ---
PATIENT NAME:BUBBA TOBAR MEDICAL RECORD: [id number] : [birth year] LOCATION:JAKE Bernardo1127 ADMISSION DATE: 07/23/17 ACCOUNT: [id number] PSYCHIATRIC EVALUATION DATE OF EVALUATION: 07/24/17 IDENTIFYING DATA: This is the first long term admission for this 86-year-old single white female. HISTORY OF PRESENT ILLNESS: This patient was originally admitted to the medical floor last week under the care of Dr. Proctor. At that time, she had been showing worsening confusion as well as some depressive symptoms. She had a preexisting history of cerebrovascular disease. She had an old infarct in the past. She had shown episodic confusion, but according to family had become much worse over the last few days prior to admission. Subsequent to admission at the medical floor, the patient became quite agitated and belligerent. At one point, she also threatened suicide. She was evaluated on the . At that time, the patient had improved somewhat and family was reluctant to have her transferred to long term; however, over the weekend, she again deteriorated and as a result has been transferred. PAST MEDICAL HISTORY: As mentioned, the patient does have a past history of cerebrovascular disease. She also has a recent history of urinary tract infection, chronic hypertension, gastroesophageal reflux disease, asthma, allergic rhinitis. She has a past history of depression as well. MEDICATION: At time of admission included Norvasc, Cozaar, Toprol, Celexa, Zyrtec, aspirin, Lasix, potassium, and guaifenesin. FAMILY HISTORY: Noncontributory. SOCIAL HISTORY: The patient has a son and [id number]-ya-xby who are very actively involved in her care. No substance abuse issues known. The patient had been living at [facility]. ALLERGIES: INCLUDE PENICILLIN, IODINE, CODEINE, MEPERIDINE. MENTAL STATUS: On interview, the patient is fairly cooperative, but mood is anxious. Affect is rather shallow. Speech tends to be tangential. Content of thought is negative for overt psychosis or acute suicidality. The patient is oriented to person and the fact that she is hospitalized. She is not oriented correctly as to time. Remote recall is fairly intact, however, intermediate and short-term recall as well as concentration also shows very significant deficits. 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 AXIS II: No diagnosis. AXIS III: History of CVA and cerebrovascular disease, hypertension, GERD, asthma and a past history of urinary tract infection. AXIS IV: Severe. AXIS V: 38. PLAN: 1. The patient is admitted for further medical and psychiatric workup. 2. Diet and activities as tolerated. 3. We will get neuropsychological testing. TRANSINT:[id number] Voice Confirmation ID: [id number] DOCUMENT ID: [id number] CHANTAL KAUFMAN III, MD at 0514 CC: [id number] DICTATION DATE: 07/24/17951 CAMOUFLAGE ASSEMBLER: 07/24/17 1016 ADM IN [facility] [address] [id number]
[2017-07-25 07:29] LABS: RAPID PLASMA REAGIN Non Reactive (Non Reactive); VITAMIN D 25 HYDROXY 10.7 ng/mL (30.0-100.0)
[2017-07-25 08:00] VITALS: BP 104/65
--- NOTE | 2017-07-25 10:00 | NUR ---
AWAKE AND ORIENTED TO NAME AND MONTH. CALM AND COOPERATIVE WITH ASSESSMENT AND CARE. COMPLIANT WITH TAKING PRESCRIBED MEDICATIONS. MONITOR FOR SAFETY AND CHANGES. WILL CONTINUE PLAN OF CARE.
[2017-07-25 13:32] VITALS: Ht 157.5 cm; Wt 56.8 kg
[2017-07-25 19:43] VITALS: BP 108/48; BP 108/63; BP 143/82
--- NOTE | 2017-07-26 01:47 | NUR ---
B) Patient alert and oriented to name and month, restless at times, calling out at night, I) No medications this shift, monitored for safety, R) Resting quietly in bed, P) Continue plan of care.
[2017-07-26 08:00] VITALS: BP 112/52
--- NOTE | 2017-07-26 08:22 | PN ---
PATIENT:BUBBA TOBAR MEDICAL RECORD: [id number] LOCATION:JAKE Cardenas ADMISSION DATE: 07/23/17 PROGRESS NOTE DATE OF SERVICE: 07/25/2017 SUBJECTIVE: No new complaint. OBJECTIVE: Staff report the patient is eating well. She is confused, but has not exhibited further agitation. She did sleep quite well last night. On exam, mood is euthymic. Affect is reserved. Speech is somewhat terse. Content of thought is negative for overt psychosis. Sensorium is unchanged. ASSESSMENT: No change in diagnosis. PLAN: 1. We will start Namenda today. 2. Neuropsychological testing in the near future. 3. Continue medications and supportive therapy. TRANSINT:[id number] Voice Confirmation ID: [id number] DOCUMENT ID: [id number] CHANTAL KAUFMAN III, MD at 0822 CC: [id number] DICTATION DATE: 07/25/17 1126 ROCK MASON APPRENTICE: 07/25/17 1240 ADM IN [facility] [address] [id number]
--- NOTE | 2017-07-26 10:05 | NUR ---
B) PATIENT IS AWAKE AND ALERT, SHE IS ORINETED X1, SHE IS NOT ABLE TO TRANSFER WITHOUT ASSIST, BUT CAN SELF PROPEL IN A W/C. I) PROVIDE PRESCRIBED MEDS, R) PATIENT IS COMPLIANT WITH MEDS AND UNIT MILIEU. P) CONTINUE POC.
[2017-07-26 19:29] VITALS: BP 130/84
--- NOTE | 2017-07-27 02:33 | NUR ---
B) patient is alert and oriented to self, calm and cooperative with staff, transfers with assist, ambulates in wheelchair, has bhandari cath. I) Administered scheduled medications, monitored for saffety R) Medication compliant, resting quietly now, P) Continue plan of care.
[2017-07-27 08:00] VITALS: BP 100/50
--- NOTE | 2017-07-27 09:38 | NUR ---
B) PATIENT IS AWAKE AND ALERT, SHE IS VERY CONFUSED AND NEEDS MUCH REDIRECTION, SHE DOES NEED PROMPTS TO SELF PROPEL, DID TRY TO GET HER TO STAND, BUT SHE IS UNABLE TO WITHOUT SLIPPING AND SLIDING. PATIENT HAS A MULLINS CATH IN PLACE WITH LUCIEN COLORED URINE. I) PROVIDE PRESCRIBED MEDS. R) PATIENT IS COMPLIANT WITH MEDS. P) CONTINUE POC.
[2017-07-27 20:31] VITALS: BP 129/60
--- NOTE | 2017-07-28 02:05 | NUR ---
B) Patient is alert and oriented to self and hospital, calm and cooperative with care and assessment, I) Administered scheduled medications, monitored for safety R) Medication compliant, resting quietly in bed, P) Continue plan of care.
[2017-07-28 08:40] VITALS: BP 122/76
--- NOTE | 2017-07-28 10:32 | PN ---
PATIENT:BUBBA TOBAR MEDICAL RECORD: [id number] LOCATION:JAKE ChangJuliocesar ADMISSION DATE: 07/23/17 PROGRESS NOTE DATE OF SERVICE: 07/27/2017 SUBJECTIVE: The patient's case was discussed with staff. She has no new complaint. OBJECTIVE: The patient is in good behavioral control with limited insight about her condition. She does tolerate her medicines reasonably well. ASSESSMENT: No change in diagnoses. PLAN: Brief supportive and educational interventions were made. Senior Living prognosis is guarded. TRANSINT:[id number] Voice Confirmation ID: [id number] DOCUMENT ID: [id number] CASSANDRA STREETER MD at 1032 CC: [id number] DICTATION DATE: 07/27/17 1242 PRODUCT SAFETY EXPERT: 07/27/17 1334 ADM IN [address] [place] [address] [place] [address]
--- NOTE | 2017-07-28 15:29 | NUR ---
IS ORIENTED TO SELF AND HOSPITAL.PROPELLS SELF IN WHEELCHAIR.MULLINS PATENT TO GRAVITY WITH CLOUDY YELLOW URINE.IS COMPLIANT WITH STAFF AND MEDS.WILL CONTINUE WITH PLAN OF CARE,MONITOR FOR CHANGES AND SAFETY.
--- NOTE | 2017-07-28 20:02 | PN ---
PATIENT:BUBBA TOBAR MEDICAL RECORD: [id number] LOCATION:JAKE LopezTonyJuliocesar ADMISSION DATE: 07/23/17 PROGRESS NOTE DATE OF SERVICE: 07/28/2017 SUBJECTIVE: The patient's case was discussed with staff. She has no new complaint. OBJECTIVE: The patient denies intent to harm herself or others. She generally tolerates her medicines well. ASSESSMENT: No change in diagnoses. PLAN: The testing from Dr. Abbi Fan is 20/30 indicating a moderate amount of impairment. This would be consistent with clinical observation. I am going to start the patient on Namenda at a dose of 5 mg daily. She will be monitored for clinical changes associated with its effect. She clearly is going to need 39-hjpw-w-day supervision. The least restrictive environment is unclear at this time. TRANSINT:[id number] Voice Confirmation ID: [id number] DOCUMENT ID: [id number] CASSANDRA STREETER MD at 2002 CC: [id number] DICTATION DATE: 07/28/17 1047 MASTIC WORKER: 07/28/17 1140 ADM IN [address] [address] [place] [id number]
[2017-07-28 22:05] VITALS: BP 91/57
--- NOTE | 2017-07-28 23:07 | NUR ---
RECEIVED IN HALLWAY OUTSIDE OF NURSES STATION. RESTING IN RECLINER WITH EYES OPEN. CALM AND COOPERATIVE WITH CARE AND ASSESSMENT. MULLINS CATHETER INTACT AND DRAINING. ENCOURAGE TO EXPRESS NEEDS. RESTING IN BED WITH EYES CLOSED AT THIS TIME. CONTINUE PLAN OF CARE.
[2017-07-29 08:00] VITALS: BP 105/46
--- NOTE | 2017-07-29 09:17 | NUR ---
ADMINISTERED MORNING MEDS WHOLE WITHOUT DIFFICULTY. PLEASANT AFFECT. NO S/SX OF ACUTE DISTRESS NOTED. WILL CONTINUE TO MONITOR
[2017-07-29 19:30] VITALS: BP 129/84
--- NOTE | 2017-07-29 22:51 | NUR ---
RECEIVED IN BEDROOM. RESTING IN BED WITH EYES CLOSED. RESPONDS TO VOICE. MULLINS INTACT. CALM AND COOPERATIVE WITH CARE AND ASSESSMENTS. ENCOURAGE TO EXPRESS NEEDS. CONTINUES TO REST QUIETLY IN BED. CONTINUE PLAN OF CARE
[2017-07-30 08:56] VITALS: BP 113/50
--- NOTE | 2017-07-30 09:19 | PN ---
PATIENT:BUBBA TOBAR MEDICAL RECORD: [id number] LOCATION:JAKE Chang112 ADMISSION DATE: 07/23/17 PROGRESS NOTE DATE OF SERVICE: 07/29/2017 SUBJECTIVE: The patient's case was discussed with staff. She has no new complaint. OBJECTIVE: The patient denies intent to harm herself or others. She generally tolerates her medicines well. ASSESSMENT: No change in diagnoses. PLAN: Brief supportive and educational interventions were made. Long-term prognosis is guarded. TRANSINT:[id number] Voice Confirmation ID: [id number] DOCUMENT ID: [id number] CASSANDRA STREETER MD at 0919 CC: [id number] DICTATION DATE: 07/29/17 111 SMALL BUSINESS REPRESENTATIVE: 07/29/17 1217 ADM IN [place] [id number] [place] [id number]
[2017-07-30 20:14] VITALS: BP 112/48
--- NOTE | 2017-07-31 00:16 | NUR ---
RECEIVED IN BEDROOM. RESTING IN BED EYES CLOSED. RESPONDS TO TOUCH. CALM AND COOPERATIVE WITH CARE AND ASSESSMENTS. CONFUSED. YELLING OUT HELP HELP FROM HER BED. WHEN ASK WHAT SHE NEEDS PATIENT STATES "I WANT TO GO HOME." REDIRECT AND REORIENT NEEDED. CONTINUES TO YELL OUT FROM BED. CONTINUE PLAN OF CARE
--- NOTE | 2017-07-31 01:10 | NUR ---
PATENT RESTLESS. YELLING OUT. INCREASING ANXIETY. PRN ATIVAN 0.5 MG IM GIVEN FOR ANXIETY
--- NOTE | 2017-07-31 03:10 | NUR ---
PATIENT CONTINUES TO HAVE ANXIETY. YELLING OUT. ATTEMPTS TO STAND WITHOUT ASSIST. PRN ATIVAN 0.5 MG IM GIVEN FOR ANXIETY
--- NOTE | 2017-07-31 09:05 | PN ---
PATIENT:BUBBA TOBAR MEDICAL RECORD: [id number] LOCATION:JAKE ChangJuliocesar ADMISSION DATE: 07/23/17 PROGRESS NOTE DATE OF SERVICE: 07/30/2017 SUBJECTIVE: The patient's case was discussed with staff. She has no new complaint. OBJECTIVE: The patient is in good behavioral control with limited insight about her condition. She tolerates her medicines well. ASSESSMENT: No change in diagnoses. PLAN: Brief supportive and educational interventions were made. Retirement prognosis is guarded. The patient will be maintained on current medicines, and I anticipate she can be transitioned out of the hospital soon. TRANSINT:[id number] Voice Confirmation ID: [id number] DOCUMENT ID: [id number] CASSANDRA STREETER MD at 0905 CC: [id number] DICTATION DATE: 07/30/17 140 BRAND COMMUNICATIONS MANAGER: 07/30/17 2115 ADM IN [facility] [address] [place] [address]
[2017-07-31 09:42] VITALS: BP 99/49
--- NOTE | 2017-07-31 11:00 | NUR ---
MEDICATIONS HELD DUE TO PT BEING LETHARGIC. SHE DOES AWAKEN AND ANSWERS QUESTIONS. BLOOD PRESSURE LOW WELL. NO AGGRESSION TODAY. SUSANNA IS PATENT. FALL PRECAUTIONS MAINTAINED. WILL COTNINUE TO MONITOR AND CONTINUE WITH PLAN OF CARE.
--- NOTE | 2017-07-31 11:01 | NUR ---
Nutrition Follow Up: Pt is eating 48% meal avg on a regular diet. No BM since admit. Labs reviewed. Meds noted including Lasix. Rec continue current diet. Rec consider bowel regmen. RD following.
--- NOTE | 2017-07-31 19:37 | NUR ---
RECEIVED IN BEDROOM. RESTING IN BED WITH EYES CLOSED. RESPONDS TO VOICE. CALM AND COOPERATIVE WITH CARE AND ASSESSMENTS. MULLINS INTACT. REDIRECT AND REORIENT NEEDED. CONTINUES TO REST QUIETLY IN BED WITH EYES CLOSED. CONTINUE PLAN OF CARE
[2017-07-31 20:17] VITALS: BP 117/56
[2017-08-01 09:06] VITALS: BP 128/65
--- NOTE | 2017-08-01 10:00 | NUR ---
Rec'd pt in dining room for b'fast, alert, calm, drowsy, cont confusion, med compliant. Jonnie meds well. Cooperative with staff. Cont POC including meds and group therapy.
--- NOTE | 2017-08-01 12:52 | PN ---
PATIENT:BUBBA TOBAR MEDICAL RECORD: [id number] LOCATION:JAKE ChangJuliocesar ADMISSION DATE: 07/23/17 PROGRESS NOTE DATE OF SERVICE: 07/31/2017 SUBJECTIVE: The patient's case was discussed with staff. She has no new complaint. OBJECTIVE: The patient is in good behavioral control with limited insight about her condition. She tolerates her medicines well. ASSESSMENT: No change in diagnoses. PLAN: Current medicines and therapies have been reviewed and will be maintained. The patient was agitated last night, so I am going to add a small dose of Seroquel to the mix. TRANSINT:[id number] Voice Confirmation ID: [id number] DOCUMENT ID: [id number] CASSANDRA STREETER MD at 1252 CC: [id number] DICTATION DATE: 07/31/17 1336 MANUFACTURING WORKER: 07/31/17 1503 ADM IN [id number] [place] [address]
[2017-08-01 19:36] VITALS: BP 134/67
--- NOTE | 2017-08-01 22:59 | NUR ---
RECEIVED IN HALLWAY OUTSIDE OF NURSES STATION. SITTING IN WHEELCHAIR. SOCIALIZING WITH STAFF. CALM AND COOPERATIVE WITH CARE AND ASSESSMENT. MULLINS INTACT. ENCOURAGE TO EXPRESS NEEDS. RESTING IN BED WITH EYES CLOSED AT THIS TIME. CONTINUE PLAN OF CARE.
--- NOTE | 2017-08-02 09:56 | PN ---
PATIENT:BUBBA TOBAR MEDICAL RECORD: [id number] LOCATION:JAKE ChangJuliocesar ADMISSION DATE: 07/23/17 PROGRESS NOTE DATE OF SERVICE: 08/01/2017 SUBJECTIVE: The patient's case was discussed with staff. She has no new complaint. OBJECTIVE: The patient is in good behavioral control with limited insight about her condition. She tolerates her medications well. ASSESSMENT: No change in diagnoses. PLAN: Current medicines have been reviewed and will be maintained. Long-term prognosis is guarded. TRANSINT:[id number] Voice Confirmation ID: [id number] DOCUMENT ID: [id number] CASSANDRA STREETER MD at 0956 CC: [id number] DICTATION DATE: 08/01/17 1302 DICE MANAGER: 08/01/17 1312 ADM IN [address] [id number] [place] [address]
[2017-08-02 10:06] VITALS: BP 102/52
--- NOTE | 2017-08-02 13:19 | NUR ---
B) PATIENT IS CALM AND PLEASANT SHE IS CONFUSED, SHE DOES N'T KNOW WHERE SHE IS, SHE DOES TRY TO CONFABULATE AND MAKE JOKES. PATIENT IS IN A W/C AND SHE DOES NOT ASSIST TO SELF PROPEL. PATIENT NORMALLY USES A BRACE TO STAND, BUT IT IS NOT AVAILABLE AND STANDING HER AND TRANSFERRING HER IS DIFFICULT. PATIENT HAS AN INDWELLING MULLINS CATHETER THAT IS DRAINING LUCIEN URINE. I) PROVIDE PRESCRIBED MEDS. R) PATIENT IS COMPLIANT WITH MEDS AND UNIT MILIEU. P) CONTINUE POC.
[2017-08-02 19:22] VITALS: BP 119/74
--- NOTE | 2017-08-03 02:00 | NUR ---
B) Patient is alert and oriented to self, tries to be friendly to staff, I) Administered scheduled medications, monitored for falls and for safety R) Medication compliant, plkeasant and quiet, P) Continue plan of care.
[2017-08-03 09:06] VITALS: BP 112/52
--- NOTE | 2017-08-03 09:17 | PN ---
PATIENT:BUBBA OTBAR MEDICAL RECORD: [id number] LOCATION:JAKE ChangJuliocesar ADMISSION DATE: 07/23/17 PROGRESS NOTE DATE OF SERVICE: 08/02/2017 SUBJECTIVE: The patient's case was discussed with staff. She has no new complaint. OBJECTIVE: The patient is severely impaired cognitively with very little insight about her condition. She denies any intent to harm herself or others. She tolerates her medicines well. ASSESSMENT: No change in diagnoses. PLAN: Current medicines have been reviewed and will be maintained. Long-term prognosis is guarded. TRANSINT:[id number] Voice Confirmation ID: [id number] DOCUMENT ID: [id number] CASSANDRA STREETER MD at 0917 CC: [id number] DICTATION DATE: 08/02/17 1003 GIZZARD PULLER: 08/02/17 1052 ADM IN [facility] [address] [place] [address]
--- NOTE | 2017-08-03 11:08 | NUR ---
B) PATIENT IS AWAKE AND ALERT, SHE IS PLEASANT, SHE HAS POOR SHORT TERM MEMORY RECALL. PATIENT HAS AN INDWELLING MULLINS CATH. SHE HAS NOT SHOWN ANY AGGRESSION TODAY. I) PROVIDE PRESCRIBED MEDS. R) PATIENT IS COMPLIANT WITH MEDS AND UNIT MILIEU. P) CONTINUE POC.
--- NOTE | 2017-08-03 11:43 | NUR ---
LATE ENTRY FROM 08/02 SW MET WITH PT'S SON, MATTEO, TO DISCUSS UPCOMING DISCHARGE PLANS. MATTEO VERBALIZED UNDERSTANDING OF DISCUSSION AND VOICED APPRECIATION FOR SERVICES.
[2017-08-03 19:57] VITALS: BP 102/50
--- NOTE | 2017-08-04 01:26 | NUR ---
B) patient is alert and oriented to person and place, calm and cooperative with care and assessment, I) Administered scheduled medications, monitored for falls and safety, R) Medications compliant, plesant and friendly, P) Continue plan of care.
[2017-08-04 08:00] VITALS: BP 119/48
--- NOTE | 2017-08-04 11:29 | PN ---
PATIENT:BUBBA TOBAR MEDICAL RECORD: [id number] LOCATION:JAKE ChangJuliocesar ADMISSION DATE: 07/23/17 PROGRESS NOTE DATE OF SERVICE: 08/03/2017 SUBJECTIVE: The patient's case was discussed with staff. She has no new complaint. OBJECTIVE: The patient is in good behavioral control with limited insight about her condition. She tolerates her medicines well. ASSESSMENT: No change in diagnoses. PLAN: Supportive and educational interventions were made. Long-term prognosis is guarded. TRANSINT:[id number] Voice Confirmation ID: [id number] DOCUMENT ID: [id number] CASSANDRA STREETER MD at 1129 CC: [id number] DICTATION DATE: 08/03/17 0936 INVENTORY CONTROL ANALYST: 08/03/17 1143 ADM IN [place] [id number] [place] [id number]
[2017-08-04 21:13] VITALS: BP 108/56
--- NOTE | 2017-08-05 04:57 | NUR ---
B) patient is alert and oriented to self, wanting to go to bed, I) Administered scheduled medications, monitored for safety, R) Medication compliant, resting quiietly in bed, P) Continue plan of care.
[2017-08-05 07:00] VITALS: BP 112/55
--- NOTE | 2017-08-05 12:00 | NUR ---
ORIENTED TO SELF ONLY.COMPLIANTWITH STAFF AND MEDS.VERY PLEASANT.PROPELLS SELF IN WHEELCHAIR.WILL CONTINUE WITH PLAN OF CARE,MONITOR FOR CHANGES AND SAFETY.
--- NOTE | 2017-08-05 12:01 | PN ---
PATIENT:BUBBA TOBAR MEDICAL RECORD: [id number] LOCATION:JAKE ChangJuliocesar ADMISSION DATE: 07/23/17 PROGRESS NOTE DATE OF SERVICE: 08/04/2017 SUBJECTIVE: The patient's case was discussed with staff. She has no new complaint. OBJECTIVE: The patient is in good behavioral control with poor insight about her condition. She tolerates her medicines well. ASSESSMENT: No change in diagnoses. PLAN: Current medicines have been reviewed and will be maintained. Long-term prognosis is guarded. TRANSINT:[id number] Voice Confirmation ID: [id number] DOCUMENT ID: [id number] CASSANDRA STREETER MD at 1201 CC: [id number] DICTATION DATE: 08/04/17 1143 SOCIAL HUMAN SERVICES ASSISTANTS: 08/04/17 1255 ADM IN [address] [place] [place] [address]
[2017-08-05 20:29] VITALS: BP 133/54
--- NOTE | 2017-08-05 20:34 | NUR ---
RECEIVED IN BEDROOM. RESTING IN BED WITH EYES OPEN. CALM AND COOPERATIVE WITH CARE AND ASSESSMENTS. MULLINS CATH INTACT. REDIRECT AND REORIENT NEEDED. RESTING IN BED WITH EYES CLOSED AT THIS TIME. CONTINUE PLAN OF CARE
[2017-08-06 07:00] VITALS: BP 111/52
--- NOTE | 2017-08-06 08:51 | NUR ---
PT AM MEDS ADMINISTERED WITH NO PROBLEMS. PT EATING BREAKFAST AT THIS TIME. WCTM.
[2017-08-06] MEDS ORDERED: NAMENDA5 MG PO (10:19)
[2017-08-06] MEDS ORDERED: SEROQUEL25 MG PO (10:20)
[2017-08-06] MEDS ORDERED: VITAMIN D5000 UNIT PO (10:20)
--- NOTE | 2017-08-06 13:51 | PN ---
PATIENT:BUBBA TOBAR MEDICAL RECORD: [id number] LOCATION:JAKE ChangJuliocesar ADMISSION DATE: 07/23/17 PROGRESS NOTE DATE OF SERVICE: 08/05/2017 SUBJECTIVE: The patient's case was discussed with staff. She has no new complaint. OBJECTIVE: The patient denies intent to harm herself or others. She tolerates her medicines well. She is severely impaired cognitively. ASSESSMENT: No change in diagnoses. PLAN: Supportive and educational interventions were made. The patient may be transitioned out of the hospital soon if this level of improvement is maintained. TRANSINT:[id number] Voice Confirmation ID: [id number] DOCUMENT ID: [id number] CASSANDRA STREETER MD at 1351 CC: [id number] DICTATION DATE: 08/05/17 1212 MOTEL CLERK: 08/05/17 1233 ADM IN [facility] [address] [place] [address]
--- NOTE | 2017-08-06 15:00 | NUR ---
DISCHARGE IS ON HOLD. PATIENT NEEDS A DG.
[2017-08-06 20:00] VITALS: BP 108/64
--- NOTE | 2017-08-06 21:01 | NUR ---
RECEIVED IN BEDROOM. RESTING IN BED WITH EYES CLOSED. MULLINS INTACT. CALM AND COOPERATIVE WITH CARE AND ASSESSMENTS. ENCOURAGE TO EXPRESS NEEDS. RESTING IN BED WITH EYES CLOSED AT THIS TIME. CONTINUE PLAN OF CARE
--- NOTE | 2017-08-07 08:00 | NUR ---
AWAKE AND ORIENTED X 2. MULLINS PATENT. NO AGGRESSION NOTED. FALL PRECAUTIONS MAINTAINED. WILL CONTINUE PLAN OF CARE.
[2017-08-07 09:01] VITALS: BP 126/59
[2017-08-07 09:06] VITALS: BP 126/60
--- NOTE | 2017-08-07 13:00 | NUR ---
LEFT HOSPITAL VIA W/C INTO [facility] FROM [facility]. REPORT CALLED TO LUCIEN.
--- NOTE | 2017-08-08 10:15 | PN ---
PATIENT:BUBBA TOBAR MEDICAL RECORD: [id number] LOCATION[facility] ADMISSION DATE: 07/23/17 PROGRESS NOTE DATE OF SERVICE: 08/07/2017 SUBJECTIVE: No new complaint. OBJECTIVE: The patient was scheduled for discharge yesterday, but BOC assessment needed to be completed and therefore discharge will be delayed until this can be done. On exam, mood is more or less euthymic. Affect is bland. Speech tends to be slightly tangential. Content of thought is unchanged. Sensorium unchanged. ASSESSMENT: No change in diagnosis. PLAN: 1. Maintain current medication. 2. Continue supportive therapy. TRANSINT:[id number] Voice Confirmation ID: [id number] DOCUMENT ID: [id number] CHANTAL KAUFMAN III, MD at 1015 CC: [id number] DICTATION DATE: 08/07/17 1108 SVP OF DIGITAL: 08/07/17 1347 DIS IN 08/07/17 [id number] [place] [address]
--- NOTE | 2017-08-08 10:15 | PN ---
PATIENT:BUBBA TOBAR MEDICAL RECORD: [id number] LOCATION[facility] ADMISSION DATE: 07/23/17 PROGRESS NOTE DATE OF SERVICE: 07/26/2017 SUBJECTIVE: No new complaint. OBJECTIVE: The patient is scheduled for neuropsychological testing tomorrow. She has exhibited fairly good behavior tolerating medications without difficulty. On exam, mood is euthymic. Affect is very reserved. Speech is terse. Content of thought is negative for overt psychosis. Sensorium unchanged. ASSESSMENT: No change in diagnosis. PLAN: 1. Continue present medications. 2. Continue supportive therapy. TRANSINT:[id number] Voice Confirmation ID: [id number] DOCUMENT ID: [id number] CHANTAL KAUFMAN III, MD at 1015 CC: [id number] DICTATION DATE: 07/26/17 1108 SODA MAKER: 07/26/17 1116 DIS IN 08/07/17 [id number] [place] [address]
--- NOTE | 2017-08-08 10:15 | DS ---
PATIENT:BUBBA TOBAR :[birth year] MEDICAL RECORD: [id number] DISCHARGE SUMMARY ADMISSION DATE: 07/23/17 DISCHARGE DATE: 08/07/17 DATE OF ADMISSION: 07/23/2017 DATE OF DISCHARGE: 08/06/2017 HISTORY OF PRESENT ILLNESS: This was the first [facility] admission for this 86-year-old single white female who is a resident of [facility]. She had been admitted to the medical floor initially because of confusion and some depressive symptoms. She had a preexisting history of cerebrovascular disease. Following her admission, she became agitated and threatened suicide, and was transferred to [facility]. For further details, please see previously dictated history. COURSE IN THE HOSPITAL: The patient was seen in consultation by Dr. Da Silva. He addressed several ongoing medical problems including hypertension, GERD, asthma and allergic rhinitis. He did note the presence of old cerebrovascular accident with accompanying cognitive deficits. It was elected to treat the patient conservatively. She was given Seroquel 12.5 mg at bedtime to assist with sleep and to prevent agitation. She was maintained on a previous dose of Celexa 20 mg daily for her depressive symptoms. She was placed on Namenda 2.5 mg b.i.d. for her dementia symptoms. Aside from that, she was kept on her routine nonpsychiatric medications. The patient did do well over the course of the hospitalization. Repeated mental status examinations did confirm the presence of moderate dementia. Her depression resolved well. There was no further suicidality. By the time of discharge, he was felt to be stable to return to a monitored environment. 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 AXIS II: No diagnosis. AXIS III: History of cerebrovascular accident and cerebrovascular disease, hypertension, gastroesophageal reflux disease, asthma, past history of urinary tract infection. AXIS IV: Moderate. AXIS V: 40. PLAN: 1. The patient is discharged on current medication. 2. Diet and activities as tolerated. 3. Follow up through primary care physician. TRANSINT:[id number] Voice Confirmation ID: [id number] DOCUMENT ID: [id number] DISCHARGE SUMMARY REPORT [id number] BUBBA TOBAR SHAE KAMARA, CHANTAL Ndiaye MD at 1015 CC: [id number] DICTATION DATE: 08/06/17 1032 SKIRT MAKER: 08/06/17 1355 DIS IN 08/07/17 [facility] [address] [facility] [place] [address]
== END 2017-08-07 13:00 | DRG 57 ==
LOC: D.PSYCH 22:51
PROVIDERS: ADMIT Psychiatry & Neurology Psychiatry
DX: I69.919 Unspecified symptoms and signs involving cognitive functions following unspecified cerebrovascular disease (principal); F01.51 Vascular dementia, unspecified severity, with behavioral disturbance; F05 Delirium due to known physiological condition; I10 Essential (primary) hypertension; K21.9 Gastro-esophageal reflux disease without esophagitis; F32.9 Major depressive disorder, single episode, unspecified; E55.9 Vitamin D deficiency, unspecified; Z74.09 Other reduced mobility; J30.9 Allergic rhinitis, unspecified; J45.909 Unspecified asthma, uncomplicated; N32.81 Overactive bladder